=== PATIENT | male | born 1940 | race African-American/Black ===

== ENCOUNTER 2017-09-16 11:50 | Inpatient (IN) | payer OTHER, MEDICARE ==
[~2017-09-16] VITALS: Ht 172.7 cm; Wt 68.0 kg
[2017-09-16] MEDS: SODIUM CHLORIDE 0.9% 1000ML 1,000 ML IV SCH ×2 (12:00→14:43)
[2017-09-16] MEDS ORDERED: SODIUM CHLORIDE 0.9% 1000ML 2,000 ML ONE (12:04)
[2017-09-16] MEDS ORDERED: CEFTRIAXONE SOD 1 GM VIAL ONE (12:04)
[2017-09-16] MEDS ORDERED: ACETAMINOPHEN 1000 MG/100 ML 100 ML IV ONE (12:04)
[2017-09-16] MEDS ORDERED: ACETAMINOPHEN 1000 MG/100 ML IV STA (12:07)
[2017-09-16] MEDS ORDERED: VANCOMYCIN 1GM/NS 250 ML 250 ML IV ONE (12:15)
[2017-09-16] MEDS ORDERED: PIPER-TAZ 3.375 GM 50 ML IV ONE (12:15)
[2017-09-16 12:23] LABS: BILIRUBIN,URINE NEGATIVE (NEGATIVE); CLARITY,URINE CLEAR (CLEAR); COLOR,URINE YELLOW (YELLOW); KETONES,URINE NEGATIVE (NEGATIVE); LEUKOCYTE ESTERASE ,URINE TRACE (NEGATIVE); NITRITE,URINE NEGATIVE (NEGATIVE); PROTEIN,URINE DIPSTICK 1+ (NEGATIVE); URINE UROBILINOGEN 0.2 mg/dL (0.2 - 1)
[2017-09-16 12:24] LABS: BASOPHILS # (AUTO) 0.1 (0.0-0.1); BASOPHILS % 0.4 % (0.0-1.0); HEMATOCRIT 32.2 % (38.2-49.6); HEMOGLOBIN 9.6 g/dL (14.0-18.0); LYMPHOCYTES # (AUTO) 3.7 (1.0-3.2); MEAN CORPUSCULAR HEMOGLOBIN 24.5 pg (28-32); MEAN CORPUSCULAR HGB CONC 29.8 g/dL (31-35); MEAN CORPUSCULAR VOLUME 82.1 fL (81-99); MONOCYTES # (AUTO) 1.6 (0.2-0.8); MONOCYTES % 8.2 % (4.4-11.3); NEUTROPHILS # (AUTO) 14.1 (2.1-6.9); PLATELET COUNT 221 x10e3/uL (140-360); RED BLOOD COUNT 3.92 x10e6/uL (4.3-5.7); RED CELL DISTRIBUTION WIDTH 17.2 % (11.7-14.4)
[2017-09-16 12:39] LABS: AMORPHOUS SEDIMENT,URINE MODERATE (FEW); BACTERIA,URINE MODERATE /HPF; EPITHELIAL CELLS,URINE FEW /LPF; MUCUS,URINE MODERATE (RARE); RBC,URINE 0-5 /HPF (0-5); WBC,URINE (MAN) 21-50 /HPF (0-5)
[2017-09-16 12:40] LABS: ABG HCO3 23 mmol/L (23-28); ABG PCO2 26 mmHg (41-51); ABG PH 7.56 (7.31-7.41); ABG PO2 116 mmHg (80-105)
[2017-09-16 12:45] LABS: ALANINE AMINOTRANSFERASE 20 IU/L (0-55); ALBUMIN 2.2 g/dL (3.5-5.0); ALBUMIN/GLOBULIN RATIO 0.3 (0.8-2.0); ALKALINE PHOSPHATASE 121 IU/L (40-150); ANION GAP 15.3 mmol/L (8-16); BLOOD UREA NITROGEN 44 mg/dL (7-26); BUN/CREATININE RATIO 35 (6-25); CALCIUM 10.4 mg/dL (8.4-10.2); CARBON DIOXIDE 23 mmol/L (22-29); CHLORIDE 117 mmol/L (98-107); CREATININE, SERUM 1.26 mg/dL (0.72-1.25); EST GLOMERULAR FILTRATION RATE > 60 ML/MIN (60-); GLUCOSE 172 mg/dL (74-118); POTASSIUM 4.3 mmol/L (3.5-5.1); SODIUM 151 mmol/L (136-145)
[2017-09-16 13:02] LABS: CREATINE KINASE MB 0.4 ng/mL (0.00-5.00)
--- NOTE | 2017-09-16 13:40 | Diagnostic Imaging Report ---
EXAMINATION: CHEST SINGLE (NOT PORTABLE) INDICATION: \S\SEPSIS \S\[id number] \S\1318 \S\Y COMPARISON: None FINDINGS: AP view TUBES and LINES: None. LUNGS: Lungs are well inflated. Bibasilar atelectasis. There is no evidence of pneumonia or pulmonary edema. PLEURA: Calcified pleural plaques in both lower hemithorax is. Ill-defined left peripheral opacities suggestive of diffuse pleural plaques. HEART AND MEDIASTINUM: The cardiomediastinal silhouette is unremarkable.. BONES AND SOFT TISSUES: No acute osseous lesion. Soft tissues are unremarkable. UPPER ABDOMEN: No free air under the diaphragm. IMPRESSION: Bibasilar atelectasis with diffuse bilateral pleural plaques, left greater than right. CT chest can be more helpful for further evaluation. Signed by: Dr. Nu Thornton M.D. on 09/16/2017 1:36 PM
--- NOTE | 2017-09-16 13:43 | Diagnostic Imaging Report ---
LEFT FOOT X-RAY - 2 VIEWS HISTORY: \S\infection \[id number] \S\1317 COMPARISON: None available. FINDINGS: Bones: No acute displaced fracture. Remote posttraumatic deformity of the left fifth metatarsal. Focal lucency within the distal aspect of the left fifth proximal phalanx and base of the left first proximal phalanx. Osseous alignment is within normal limits. Joints: Advanced degenerative changes throughout the foot. Soft tissues: The soft tissues appear unremarkable. IMPRESSION: Focal cortical lucency within the left fifth proximal phalanx and base of the left first proximal phalanx may represent osteomyelitis. Signed by: Dr. Nu Thornton M.D. on 09/16/2017 1:39 PM
--- NOTE | 2017-09-16 13:44 | Diagnostic Imaging Report ---
RIGHT FOOT X-RAY - 2 VIEWS HISTORY: \S\infection \[id number] \S\1317 COMPARISON: None available. FINDINGS: Bones: No acute displaced fracture. Diffuse bony mineralization. Focal cortical disruption and lucency of the distal aspect of the right fifth metatarsal with adjacent soft tissue swelling. Osseous alignment is within normal limits. Joints: Advanced degenerative changes throughout the foot. Soft tissues: Soft tissue swelling adjacent to the distal right first digit. IMPRESSION: Radiographic findings concerning for osteomyelitis of the distal right fifth metatarsal. Signed by: Dr. Nu Thornton M.D. on 09/16/2017 1:41 PM
[2017-09-16] MEDS ORDERED: LACTATED RINGER'S 1,000 ML IV ONE (13:45)
[2017-09-16] MEDS ORDERED: ACETAMINOPHEN 1000 MG/100 ML IV PRN (15:00)
[2017-09-16] MEDS: DEXTROSE 5% 1,000 ML IV SCH (17:34)
[2017-09-16] MEDS ORDERED: SODIUM CHLORIDE 0.9% 1000ML 1,000 ML IV SCH (19:15)
[2017-09-16] MEDS ORDERED: PIPER-TAZ 3.375 GM 50 ML IV SCH (20:00)
[2017-09-16 20:17] VITALS: BP 99/67
[2017-09-16] MEDS: PIPER-TAZ 3.375 GM 50 ML IV SCH (22:39)
[2017-09-17] MEDS ORDERED: VANCOMYCIN 1GM/NS 250 ML 250 ML IV SCH
[2017-09-17] MEDS: VANCOMYCIN 1GM/NS 250 ML 250 ML IV SCH ×2 (03:00→14:44)
[2017-09-17] MEDS: DEXTROSE 5% 1,000 ML IV SCH ×2 (03:00→16:41)
[2017-09-17] MEDS: PIPER-TAZ 3.375 GM 50 ML IV SCH ×3 (06:00→22:45)
[2017-09-17 06:28] LABS: BASOPHILS # (AUTO) 0.1 (0.0-0.1); BASOPHILS % 0.3 % (0.0-1.0); EOSINOPHILS # (AUTO) 0.1 (0.0-0.4); EOSINOPHILS % 0.5 % (0.0-6.0); HEMATOCRIT 22.8 % (38.2-49.6); LYMPHOCYTES # (AUTO) 2.4 (1.0-3.2); LYMPHOCYTES % 15.4 % (18.0-39.1); MEAN CORPUSCULAR HEMOGLOBIN 24.5 pg (28-32); MEAN CORPUSCULAR HGB CONC 29.4 g/dL (31-35); MEAN CORPUSCULAR VOLUME 83.2 fL (81-99); MONOCYTES # (AUTO) 1.2 (0.2-0.8); MONOCYTES % 7.4 % (4.4-11.3); NEUTROPHILS # (AUTO) 11.8 (2.1-6.9); NEUTROPHILS % 75.9 % (38.7-80.0); PLATELET COUNT 171 x10e3/uL (140-360); RED BLOOD COUNT 2.74 x10e6/uL (4.3-5.7)
[2017-09-17 06:31] LABS: HEMOGLOBIN 6.7 g/dL (14.0-18.0)
[2017-09-17] MEDS ORDERED: VENELEX OINTMEN60 GM TOP (06:37)
[2017-09-17] MEDS ORDERED: [UNRECOGNIZED DRUG - OTHER] TOP (06:37)
[2017-09-17] MEDS ORDERED: NYSTATIN-TRIAMC15 G1 TOP (06:37)
[2017-09-17] MEDS ORDERED: NYSTATIN1 EAC1 TOP (06:37)
[2017-09-17] MEDS ORDERED: ACETAMINOP325 MG/10 PEG (06:37)
[2017-09-17] MEDS ORDERED: VALPROIC A250 MG/5 M PEG (06:37)
[2017-09-17] MEDS ORDERED: ASPIRIN CHEW81 MG PEG (06:37)
[2017-09-17] MEDS ORDERED: PANTOPRAZOLE SO40 MG PEG (06:37)
[2017-09-17] MEDS ORDERED: MULTIVITAMINS1 EAC8 PEG (06:37)
[2017-09-17] MEDS ORDERED: CEFEPIME-D1 GM/50 ML IVP (06:37)
[2017-09-17] MEDS ORDERED: LEVAQUIN500 MG PEG (06:37)
[2017-09-17] MEDS ORDERED: POTASSIUM CHLO10 ME1 PEG (06:37)
[2017-09-17 06:41] LABS: ALANINE AMINOTRANSFERASE 14 IU/L (0-55); ALBUMIN 1.8 g/dL (3.5-5.0); ALBUMIN/GLOBULIN RATIO 0.3 (0.8-2.0); ALKALINE PHOSPHATASE 84 IU/L (40-150); ANION GAP 10.1 mmol/L (8-16); BLOOD UREA NITROGEN 36 mg/dL (7-26); BUN/CREATININE RATIO 46 (6-25); CARBON DIOXIDE 22 mmol/L (22-29); CHLORIDE 117 mmol/L (98-107); CREATININE, SERUM 0.78 mg/dL (0.72-1.25); EST GLOMERULAR FILTRATION RATE > 60 ML/MIN (60-); GLUCOSE 116 mg/dL (74-118); POTASSIUM 3.1 mmol/L (3.5-5.1); SODIUM 146 mmol/L (136-145)
[2017-09-17] MEDS ORDERED: SODIUM CHLORIDE 0.9% 250ML 250 ML IV ONE (07:00)
[2017-09-17 08:36] LABS: MAGNESIUM 1.6 MG/DL (1.3-2.1)
[2017-09-17 08:51] LABS: % IRON SATURATION 16 % (15-50); IRON 23 ug/dL (65-175); TOTAL IRON BINDING CAPACITY 146 ug/dL (261-478); TRANSFERRIN 104 mg/dL (174-364)
[2017-09-17] MEDS ORDERED: PANTOPRAZOLE INJ 40 MG in SODIUM CHLORIDE 0.9% 50ML 50 ML IV SCH (09:00)
[2017-09-17] MEDS: ASPIRIN 81 MG CHEW TAB PEG SCH (09:00)
[2017-09-17] MEDS ORDERED: PANTOPRAZOLE 40 MG 10ML VIAL IV ONE (09:00)
[2017-09-17 09:02] LABS: FREE T4 (FREE THYROXINE) 0.79 ng/dL (0.9-1.8)
[2017-09-17 09:58] LABS: FOLATE > 20.0 ng/mL (7.0-15.4)
[2017-09-17] MEDS: NYSTATIN 15 GM POWDER UD BTL TOP SCH ×2 (13:12→17:22)
[2017-09-17] MEDS: VALPROATE 250MG/5ML ORAL LIQ 5ml PEG SCH ×2 (13:12→22:45)
[2017-09-17] MEDS: MULTIVITAMINS 5 ML LIQUID PEG SCH (13:13)
[2017-09-17] MEDS: NYSTATIN/TRIAMCINOLONE 15 GM CR TOP SCH ×2 (13:13→17:22)
--- NOTE | 2017-09-17 14:54 | History and Physical ---
PRIMARY CARE PROVIDER: Dr. Will Gonzalez CHIEF COMPLAINT: Fever and altered mentation. HISTORY OF PRESENT ILLNESS: Mr. Meadows is a 77-year-old gentleman who is bedbound with contractures of all 4 extremities, pressure sores on his feet, chronic indwelling Rodriguez catheter, PEG tube for feeding, who was sent from [facility] with fever greater than 102 with some decreased responsiveness related to the fever. REVIEW OF SYSTEMS: Unobtainable as the patient answers only his name to any question. 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 He has a PEG tube in place for feeding. He has contractures of all 4 extremities. He also has an apparent history of coronary artery disease and congestive heart failure. MEDICATIONS 1. Protonix 40 mg daily. 2. He has been on levofloxacin and cefepime at the longterm. 3. Potassium 10 mEq daily. 4. Bumex1 mg daily. 5. Tylenol as needed. 6. Aspirin 81 mg daily. 7. Multivitamin daily. 8. Nystatin powder to the groin. 9. Valproic acid 250 mg q.12 h. ALLERGIES: HE HAS NO KNOWN DRUG ALLERGIES. FAMILY HISTORY: Unknown. SOCIAL HISTORY: The patient is a resident of [facility]. He does not smoke, drink or use illegal drugs. He is bedridden and requires total assistance for all activities of daily living. He is and [place] is his primary language. PHYSICAL EXAMINATION PSYCHIATRIC: He is awake, alert and oriented to himself only. Otherwise, confused and disoriented, but awake. He is cachectic in appearance and chronically ill-appearing. He is in no acute distress. VITAL SIGNS: Temperature 99.4, temperature on admission 105.7, pulse rate currently 96 and was 148 on admission, blood pressure currently 110/85 and was 113/68 on admission. The lowest it got was 99/67, respiratory rate 16, O2 sat 100%. BMI is 19. HEENT: His head is atraumatic. His eyes are anicteric with clear conjunctivae. Ears and nares are without erythema or discharge. Oropharynx is clear. NECK: Supple. No mass or thyromegaly. LYMPHATIC SYSTEM: He has no palpable cervical, axillary or inguinal adenopathy. CARDIOVASCULAR: His heart has a regular rate and rhythm without murmur or extra heart sound. He has no carotid bruit. He has no peripheral edema. His dorsal pedal pulses are not palpable. RESPIRATORY: Clear to auscultation and percussion with normal respiratory effort. GASTROINTESTINAL: His abdomen is soft without organomegaly, masses or tenderness. He has a PEG tube in place that is functional. CUTANEOUS: His skin is warm and dry to touch. Quite dry in fact. He has numerous pressure sores on both feet, both medial and lateral ankles on both feet, both heels. On the left foot, medial forefoot. On the right foot, lateral forefoot. Some of which are open and draining. MUSCULOSKELETAL: His joints are in normal alignment. He is contractures in all 4 extremities. He has no calf tenderness. NEUROLOGIC: The patient is awake. He basically cannot move anything. He can kind of wiggle his fingers on his left hand and that is about it. Cannot move any of his other extremities. DIAGNOSTIC STUDIES: Chest x-ray shows bibasilar atelectasis and diffuse pleural plaques bilaterally. His right foot shows questionable osteo in the distal 5th metatarsal and soft tissue swelling adjacent to the 1st toe. The left foot shows question osteo on the left proximal 5th phalange. His flu screen is negative. His UA has 20-50 white cells. ABGs has a pH of 7.56, pCO2 of 26, pO2 of 116. Free T4 is 0.79. Troponin 0.038. Folic acid greater than 20. B12 477, both normal. Iron 23, percent saturation 16, and transferrin 104, all low. His chemistry initially sodium of 151, potassium 4.3, chloride 117, CO2 23, glucose 172, creatinine 1.26, BUN 44. GFR greater than 60. Calcium 10.4. After hydration overnight with D5, his sodium is 146, potassium is 3.1, CO2 22, chloride 117, BUN 36, creatinine 0.78, again for a GFR greater than 60. Calcium is 9. Magnesium 1.6. His CBC initially with white count of 19.58 with 72% neutrophils, 19% lymphocytes, hemoglobin 9.6, hematocrit 32.7, and platelet count 221,000. With hydration overnight, his white count is 15.5 with 76% neutrophils, hemoglobin 6.7, hematocrit 22.8, and platelet count of 171,000. His transaminases, bilirubin and alk phos are all normal. IMPRESSION AND PLAN 1. Urinary tract infection with sepsis: Will start the patient on intravenous Zosyn empirically pending urine culture results. 2. Infected pressure sores on both feet with evidence of osteomyelitis: Will obtain wound cultures. Will order wound care. Will start intravenous vancomycin and Zosyn empirically and consult podiatry for possible debridement. 3. Iron deficiency anemia: Possible gastrointestinal bleeding. Will start a Protonix drip. Check a fecal occult blood test and transfuse 2 units of packed cells today. 4. History of congestive heart failure of unknown type: Will order an echocardiogram to assess left ventricular function. 5. Old stroke with dementia, seizures and dysphagia: Will continue his Depakote. Will percutaneous endoscopic gastrostomy feeding. Will continue supportive care. 6. Related to the infected sores on his feet, will obtain bilateral arterial Dopplers of the lower extremity, and will supplement his tube feeding with vitamins and supplements for wound healing. 7. For prophylaxis, he will be on Lovenox for deep venous thrombosis prophylaxis and Protonix drip for gastrointestinal prophylaxis. Job#: [id number] [place]
[2017-09-17] MEDS: PANTOPRAZOL 40MG/SOD CHL 0.9% 50 ML IV SCH ×2 (16:50→22:44)
[2017-09-17 21:00] VITALS: BP 96/86
[2017-09-17] MEDS ORDERED: MORPHINE SULFATE 2 MG/ML SYR IV STA (21:10)
[2017-09-17] MEDS ORDERED: MORPHINE SULFATE 2 MG/ML SYR ONE (21:12)
[2017-09-17 22:00] VITALS: BP 121/73
[2017-09-17 22:12] VITALS: BP 96/66
[2017-09-17 22:21] VITALS: BP 102/62
[2017-09-17 22:25] VITALS: BP 99/62
[2017-09-17] MEDS: HYDROCODONE/APAP 5MG-325MG TAB PO PRN (22:46)
[2017-09-17 23:25] VITALS: BP 131/78
[2017-09-18] VITALS (16 sets, daily range): BP systolic 79–132; BP diastolic 47–92
[2017-09-18] MEDS: PANTOPRAZOL 40MG/SOD CHL 0.9% 50 ML IV SCH ×3 (01:41→09:42)
[2017-09-18] MEDS: HYDROCODONE/APAP 5MG-325MG TAB PO PRN ×3 (05:00→20:03)
[2017-09-18] MEDS: DEXTROSE 5% 1,000 ML IV SCH (05:01)
[2017-09-18] MEDS: PIPER-TAZ 3.375 GM 50 ML IV SCH ×3 (05:02→21:00)
[2017-09-18] MEDS: VANCOMYCIN 1GM/NS 250 ML 250 ML IV SCH ×2 (05:02→15:00)
[2017-09-18 06:11] LABS: BASOPHILS % 0.3 % (0.0-1.0); EOSINOPHILS # (AUTO) 0.2 (0.0-0.4); EOSINOPHILS % 1.2 % (0.0-6.0); HEMATOCRIT 27.6 % (38.2-49.6); HEMOGLOBIN 8.8 g/dL (14.0-18.0); LYMPHOCYTES % 14.7 % (18.0-39.1); MEAN CORPUSCULAR HEMOGLOBIN 26.4 pg (28-32); MEAN CORPUSCULAR HGB CONC 31.9 g/dL (31-35); MEAN CORPUSCULAR VOLUME 82.9 fL (81-99); MONOCYTES # (AUTO) 0.8 (0.2-0.8); MONOCYTES % 6.2 % (4.4-11.3); NEUTROPHILS # (AUTO) 10.3 (2.1-6.9); NEUTROPHILS % 77.3 % (38.7-80.0); PLATELET COUNT 129 x10e3/uL (140-360); RED BLOOD COUNT 3.33 x10e6/uL (4.3-5.7); RED CELL DISTRIBUTION WIDTH 15.9 % (11.7-14.4)
[2017-09-18 06:29] LABS: ALANINE AMINOTRANSFERASE 11 IU/L (0-55); ALBUMIN 1.8 g/dL (3.5-5.0); ALBUMIN/GLOBULIN RATIO 0.3 (0.8-2.0); ALKALINE PHOSPHATASE 81 IU/L (40-150); ANION GAP 12.2 mmol/L (8-16); BLOOD UREA NITROGEN 23 mg/dL (7-26); BUN/CREATININE RATIO 38 (6-25); CALCIUM 8.7 mg/dL (8.4-10.2); CARBON DIOXIDE 19 mmol/L (22-29); CHLORIDE 111 mmol/L (98-107); CREATININE, SERUM 0.61 mg/dL (0.72-1.25); EST GLOMERULAR FILTRATION RATE > 60 ML/MIN (60-); GLUCOSE 110 mg/dL (74-118); POTASSIUM 3.2 mmol/L (3.5-5.1); SODIUM 139 mmol/L (136-145)
[2017-09-18] MEDS: NYSTATIN/TRIAMCINOLONE 15 GM CR TOP SCH ×2 (09:00→18:27)
[2017-09-18] MEDS: NYSTATIN 15 GM POWDER UD BTL TOP SCH ×2 (09:42→18:27)
[2017-09-18] MEDS: ASPIRIN 81 MG CHEW TAB PEG SCH (09:53)
[2017-09-18] MEDS: VALPROATE 250MG/5ML ORAL LIQ 5ml PEG SCH ×2 (09:53→20:03)
[2017-09-18] MEDS: MULTIVITAMINS 5 ML LIQUID PEG SCH (09:53)
--- NOTE | 2017-09-18 10:22 | Consultation ---
DATE OF CONSULTATION: September 18, 2017 REASON FOR CONSULTATION: Bilateral foot wounds. HISTORY OF PRESENT ILLNESS: This is a 77-year-old male who was admitted through the emergency room for increasing fever and altered mental status. He has a past medical history for major stroke that left him as a functional quadriplegic with dysphagia and dementia. Coronary artery disease, congestive heart failure. The patient is unable to answer questions appropriately when asked questions. He only responds to saying, "my legs". The patient is currently residing at [facility]. PAST MEDICAL HISTORY: Stroke, functional quadriplegia, coronary artery disease, congestive heart failure. MEDICATIONS: Per the chart. ALLERGIES: NO KNOWN DRUG ALLERGIES. FAMILY HISTORY: Unknown. SOCIAL HISTORY: Lives at [facility]. PHYSICAL EXAMINATION GENERAL: The patient is not alert and oriented. VITAL SIGNS: Today, temperature is 97.5, heart rate 100, blood pressure 132/85, pulse ox 100% on room air. PROBLEM FOCUSED TO LOWER EXTREMITY PHYSICAL EXAMINATION VASCULAR: Dorsalis pedis and posterior tibial pulses are nonpalpable. Capillary refill time is delayed to the digits, especially the right 5th digit. Moderate 1+ pitting edema noted to bilateral lower extremities. There is erythema as noted to the periwound of multiple lower extremity foot ulcers. The foot is in general cold to the touch. NEUROLOGICAL: Sensation is difficult to be determined. The patient exclaims in pain when the lower extremities are moved. MUSCULOSKELETAL: Severe contractures at the hip and at the knee joint, as well as the upper extremities. The patient has no muscle strength to bilateral lower extremity muscle groups. However, pain is elicited when trying to position the patient and move to evaluate the wounds. Pain on palpation to all lower extremity ulcerations. DERMATOLOGICAL: Multiple ulcerations are noted to bilateral lower extremities to the right 5th digit, and stage 3 ulceration with mild drainage with a fibro-granular base. A deep stage 3 ulceration to the patient's right heel, which does probe down to the level of deep capsule. The wound is 100% fibrotic with mild drainage. A pre-ulcerative lesion around the left 1st metatarsophalangeal joint. Ulceration along the left heel, as well as the left lateral malleolus. Multiple ulcerations are noted to the patient's medial leg lower extremities. LABS: White blood cell count is 13.3 down from 19.5, hemoglobin 8.8, hematocrit 27.6, and platelet count is 129,000. Sodium 139, potassium 3.2, chloride 111, CO2 19, BUN 23, creatinine 0.6, glucose 124. Blood cultures positive with gram-positive cocci in pairs and clusters. Right and left foot culture, urine culture and sacral ulcer cultures are pending. IMAGING: Right foot x-ray reveals osteolytic destruction of the right 5th proximal phalanx consistent with osteomyelitis. The left foot reveals possible cortical lucency in the left 1st proximal phalanx. The left 5th proximal phalanx with deformity to the left 5th metatarsal, which may include chronic osteo versus previous trauma. ASSESSMENT 1. Bilateral lower extremity multiple ulcerations with osteomyelitis. 2. Peripheral vascular disease. 3. Sepsis. 4. Status post stroke with quadriplegia. PLAN: Patient was seen evaluated. Discussed condition and treatment options with the patient in detail. At this time, would recommend continuing IV antibiotics with vancomycin and Zosyn until wound cultures are received. Will continue local wound care with Aquacel for drainage, 4 x 4's, and Kerlix. The wound dressing was changed today, and all wounds were cleansed with normal saline. The patient was screaming in pain during dressing changes, and wounds were difficult to be evaluated due to severe contractures to bilateral lower extremities. Will continue to monitor wounds with IV antibiotics and local wound care. Will also await results of arterial Dopplers to determine the patient's vascularity. At this point, amputation of osteomyelitic digit would be of little value due to severe nonhealing ulcerations to multiple locations on bilateral lower extremities. Will continue to monitor. If amputation is necessary when the patient is stable, will recommend palliative care with wound care and IV antibiotics. The podiatry service will continue to monitor as an inpatient. Job#: [id number] [place]
[2017-09-18] MEDS ORDERED: POTASSIUM CHLORIDE 20MEQ/15ML UDC NG STA (11:35)
[2017-09-18] MEDS: FAMOTIDINE 20 MG TAB PO SCH (20:03)
[2017-09-18] MEDS: METOCLOPRAMIDE HCL 10 MG TAB PO SCH (20:03)
[2017-09-18] MEDS: BALSAM PERU/CASTOR OIL 60 GM OINT...G. TP SCH (20:03)
[2017-09-18] MEDS ORDERED: TRAMADOL HCL 50 MG TAB GT PRN (23:15)
[2017-09-18] MEDS: HYDROCODONE/APAP 10MG-325MG TAB GT PRN (23:53)
[2017-09-19] VITALS (26 sets, daily range): BP systolic 84–130; BP diastolic 48–86
[2017-09-19] MEDS: HYDROCODONE/APAP 10MG-325MG TAB GT PRN ×2 (03:50→21:11)
[2017-09-19 05:59] LABS: BASOPHILS % 0.2 % (0.0-1.0); EOSINOPHILS # (AUTO) 0.2 (0.0-0.4); EOSINOPHILS % 1.9 % (0.0-6.0); HEMATOCRIT 27.2 % (38.2-49.6); HEMOGLOBIN 8.7 g/dL (14.0-18.0); LYMPHOCYTES # (AUTO) 1.9 (1.0-3.2); LYMPHOCYTES % 17.5 % (18.0-39.1); MEAN CORPUSCULAR VOLUME 81.2 fL (81-99); MONOCYTES # (AUTO) 0.8 (0.2-0.8); MONOCYTES % 7.2 % (4.4-11.3); NEUTROPHILS # (AUTO) 7.9 (2.1-6.9); NEUTROPHILS % 72.7 % (38.7-80.0); PLATELET COUNT 172 x10e3/uL (140-360); RED BLOOD COUNT 3.35 x10e6/uL (4.3-5.7); RED CELL DISTRIBUTION WIDTH 16.2 % (11.7-14.4)
[2017-09-19] MEDS: PIPER-TAZ 3.375 GM 50 ML IV SCH ×3 (06:19→21:10)
[2017-09-19 06:30] LABS: ANION GAP 10.8 mmol/L (8-16); BLOOD UREA NITROGEN 13 mg/dL (7-26); BUN/CREATININE RATIO 25 (6-25); CALCIUM 8.4 mg/dL (8.4-10.2); CARBON DIOXIDE 22 mmol/L (22-29); CHLORIDE 110 mmol/L (98-107); CREATININE, SERUM 0.51 mg/dL (0.72-1.25); EST GLOMERULAR FILTRATION RATE > 60 ML/MIN (60-); GLUCOSE 107 mg/dL (74-118); MAGNESIUM 1.4 MG/DL (1.3-2.1); POTASSIUM 3.8 mmol/L (3.5-5.1); SODIUM 139 mmol/L (136-145)
[2017-09-19] MEDS ORDERED: SODIUM CHLORIDE 0.9% 50ML 50 ML ONE (09:01)
[2017-09-19] MEDS: METOCLOPRAMIDE HCL 10 MG TAB PO SCH ×2 (09:14→20:14)
[2017-09-19] MEDS: FAMOTIDINE 20 MG TAB PO SCH ×2 (09:14→20:14)
[2017-09-19] MEDS: NYSTATIN 15 GM POWDER UD BTL TOP SCH ×2 (09:14→17:41)
[2017-09-19] MEDS: VANCOMYCIN 1GM/NS 250 ML 250 ML IV SCH (09:14)
[2017-09-19] MEDS: MULTIVITAMINS 5 ML LIQUID PEG SCH (09:14)
[2017-09-19] MEDS: BALSAM PERU/CASTOR OIL 60 GM OINT...G. TP SCH ×2 (09:14→17:41)
[2017-09-19] MEDS: VALPROATE 250MG/5ML ORAL LIQ 5ml PEG SCH ×2 (09:14→20:14)
[2017-09-19] MEDS: ASPIRIN 81 MG CHEW TAB PEG SCH (09:14)
[2017-09-19] MEDS: NYSTATIN/TRIAMCINOLONE 15 GM CR TOP SCH ×2 (09:14→17:41)
--- NOTE | 2017-09-19 11:49 | Progress Note ---
DATE: September 19, 2017 SUBJECTIVE: This 77-year-old male with a history of stroke, severe bilateral upper and lower extremity contractures, coronary artery disease, and congestive heart failure was seen at bedside today. The patient is nonverbal today. Does not appear in any acute distress. OBJECTIVE: Vital signs: Today, temperature is 97.8, heart rate 95, blood pressure 130/86, pulse ox 98% on 2 L nasal cannula. PROBLEM FOCUSED LOWER EXTREMITY PHYSICAL EXAMINATION VASCULAR: Dorsalis pedis and posterior tibial pulses are nonpalpable. Capillary refill time is delayed to the digits. NEUROLOGIC: Sensation is difficult to be determined; however, the patient does scream with pain. MUSCULOSKELETAL: Severe contractures at the hip and knee joint, as well as the upper extremities. No muscle strength to bilateral lower extremity muscle groups. Pain on palpation when trying to position the patient. DERMATOLOGICAL: Dressing change was not performed today. Did not appear to be any strikethrough to the current dressing. LABS: White blood cell count 10.9, hemoglobin 8.7, hematocrit 27.2, platelet count 172. Glucose 108. ASSESSMENT 1. Bilateral lower extremities with multiple ulcerations and osteomyelitis. 2. Peripheral vascular disease. 3. Sepsis. 4. Status post stroke with severe contractures and functional quadriplegia. PLAN: Patient was seen and evaluated. Discussed condition and treatment options with the patient in detail. The patient's leukocytosis is resolving. Vital signs are stabilizing. Will continue local wound care with protocol for drainage, 4 x 4's and Kerlix to be changed every other day. Will continue to monitor wounds with IV antibiotics and local wound care. No family was at bedside today. Also, there is no report for vascularity of bilateral lower extremities. At this point, amputation of the osteomyelitis of the right foot wound be of little value due to poor circulation and the patient's positioning in light of multiple nonhealing ulcerations to bilateral lower extremities. At this point, will continue to recommended palliative care with IV antibiotics and local wound care. The podiatry service will continue to monitor as an inpatient. Job#: [id number]
[2017-09-19] MEDS: ACETAMINOPHEN 325 MG/10 ML UDC PEG PRN (12:17)
[2017-09-19] MEDS ORDERED: SODIUM CHLORIDE 0.9% 1000ML 1,000 ML IV ONE (18:30)
[2017-09-20] VITALS (30 sets, daily range): BP systolic 77–119; BP diastolic 48–97
[2017-09-20] MEDS: ACETAMINOPHEN 325 MG/10 ML UDC PEG PRN ×2 (00:38→21:00)
[2017-09-20] MEDS: PIPER-TAZ 3.375 GM 50 ML IV SCH ×2 (05:40→14:06)
[2017-09-20 06:11] LABS: BASOPHILS % 0.3 % (0.0-1.0); EOSINOPHILS # (AUTO) 0.3 (0.0-0.4); EOSINOPHILS % 2.5 % (0.0-6.0); HEMATOCRIT 24.3 % (38.2-49.6); LYMPHOCYTES # (AUTO) 2.6 (1.0-3.2); LYMPHOCYTES % 20.9 % (18.0-39.1); MEAN CORPUSCULAR HEMOGLOBIN 26.5 pg (28-32); MEAN CORPUSCULAR HGB CONC 32.5 g/dL (31-35); MEAN CORPUSCULAR VOLUME 81.5 fL (81-99); MONOCYTES % 7.8 % (4.4-11.3); NEUTROPHILS # (AUTO) 8.3 (2.1-6.9); NEUTROPHILS % 67.9 % (38.7-80.0); PLATELET COUNT 201 x10e3/uL (140-360); RED BLOOD COUNT 2.98 x10e6/uL (4.3-5.7); RED CELL DISTRIBUTION WIDTH 16.7 % (11.7-14.4)
[2017-09-20 06:22] LABS: HEMOGLOBIN 7.9 g/dL (14.0-18.0)
[2017-09-20 06:38] LABS: ANION GAP 10.6 mmol/L (8-16); BLOOD UREA NITROGEN 10 mg/dL (7-26); BUN/CREATININE RATIO 20 (6-25); CALCIUM 8.1 mg/dL (8.4-10.2); CARBON DIOXIDE 23 mmol/L (22-29); CHLORIDE 108 mmol/L (98-107); EST GLOMERULAR FILTRATION RATE > 60 ML/MIN (60-); GLUCOSE 102 mg/dL (74-118); MAGNESIUM 1.3 MG/DL (1.3-2.1); POTASSIUM 3.6 mmol/L (3.5-5.1); SODIUM 138 mmol/L (136-145)
[2017-09-20] MEDS: NYSTATIN/TRIAMCINOLONE 15 GM CR TOP SCH ×2 (09:00→17:00)
[2017-09-20] MEDS: METOCLOPRAMIDE HCL 10 MG TAB PO SCH ×2 (09:00→21:00)
[2017-09-20] MEDS: VALPROATE 250MG/5ML ORAL LIQ 5ml PEG SCH ×2 (09:00→21:00)
[2017-09-20] MEDS: FAMOTIDINE 20 MG TAB PO SCH ×2 (09:00→21:00)
[2017-09-20] MEDS: ASPIRIN 81 MG CHEW TAB PEG SCH (09:00)
[2017-09-20] MEDS: VANCOMYCIN 1GM/NS 250 ML 250 ML IV SCH (09:00)
[2017-09-20] MEDS: MULTIVITAMINS 5 ML LIQUID PEG SCH (09:00)
[2017-09-20] MEDS: BALSAM PERU/CASTOR OIL 60 GM OINT...G. TP SCH ×2 (09:00→17:00)
[2017-09-20] MEDS: NYSTATIN 15 GM POWDER UD BTL TOP SCH ×2 (09:00→17:00)
[2017-09-20] MEDS ORDERED: SODIUM CHLORIDE 0.9% 250ML 250 ML IV ONE (09:45)
[2017-09-20] MEDS: HYDROCODONE/APAP 5MG-325MG TAB GT PRN ×2 (11:17→18:44)
--- NOTE | 2017-09-20 13:56 | Progress Note ---
DATE: September 20, 2017 SUBJECTIVE: This is a 77-year-old male with a history of stroke, severe upper and lower extremity contractures, coronary artery disease, and congestive heart failure, who was seen at bedside today. He was admitted for sepsis. The patient is much more alert and oriented today than he has been over the past 2 days. He is able to speak clearer. The patient relates that he is feeling much better, and he was not himself for the past 2 days. He does not appear in any acute distress. OBJECTIVE: Vital signs today: Temperature is 99.1, heart rate 86, respiratory rate 18, blood pressure 110/51. Pulse ox is 98% on 2 L nasal cannula. PROBLEM FOCUSED LOWER EXTREMITY PHYSICAL EXAMINATION VASCULAR: Dorsalis pedis and posterior tibial pulses are nonpalpable. Capillary refill time is delayed to the digits. The foot is warm to the touch. NEUROLOGIC: Sensation is difficult to be determined. The patient does scream in pain when moving the lower extremities. MUSCULOSKELETAL: Severe contractures at the hip and knee joint, as well as the upper and lower extremities. Has 0/5 muscle strength to bilateral lower extremity muscle groups. Pain on palpation and pain when positioning the patient. DERMATOLOGICAL: Several ulcerations are noted to bilateral lower extremities. Right 5th metatarsal head and digit large deep open ulceration. Drainage has improved from previous visit. Local acute signs of infection have improved as well. Right lateral malleolar wound is 100% fibrotic with no periwound erythema, edema, or drainage. Proximal leg ulcerations are significantly improved on the right lower extremity. Deep ulceration with drainage is noted to the patient's right heel. Left heel ulceration is small with hyperkeratotic tissue. Again, no drainage and no local acute signs of infection. Lateral malleolar wound is fibrotic with mild drainage. Periwound erythema is present. Medial aspect of the left lower leg has a superficial ulceration which is granular with no signs of infection. All wounds have improved since previous dressing change. LABS: White blood cell count 12.19, hemoglobin 7.9, hematocrit 24.3, platelet count 201. IMAGING: Arterial Dopplers of lower extremities reveal no significant atherosclerotic plaque noted in bilateral vessels. The mid segment of the right posterior tibial artery was not visualized. ASSESSMENT 1. Bilateral lower extremity ulcerations with osteomyelitis. 2. Sepsis, improving. 3. Status post stroke with severe contractures and functional quadriplegia. PLAN: Patient was seen and evaluated. Discussed condition and treatment options with the patient in detail. The patient's leukocytosis is improved since admission; however, a slight increase was noted today compared to yesterday. The patient was running a temperature of 99 at the time of visit today. Will continue local wound care to bilateral lower extremities. The draining ulcers were dressed with absorbent alginate. The dry eschars were dressed with Xeroform, saline wet-to-dry, 4 x 4's, Kerlix and Prevalon boots. Continue IV antibiotics. Again, no family was at bedside today. The patient is currently being attempted to transfer to [facility] for IV antibiotics and local wound care. My recommendation continues to be palliative care, as amputation would not benefit the patient at this time as he has a history of several nonhealing ulcerations to bilateral lower extremities and, due to lower extremity contractures, it would be difficult to perform. Would continue to recommend palliative care. Job#: [id number]
[2017-09-20] MEDS: ZINC SULFATE 220 MG CAP PO SCH (17:00)
[2017-09-20] MEDS: ASCORBIC ACID 500 MG TAB PO SCH (17:00)
[2017-09-20] MEDS: MAGNESIUM OXIDE 400 MG TAB PO SCH (17:00)
[2017-09-20] MEDS: FERROUS SULFATE 325 MG TAB PO SCH (17:00)
[2017-09-20] MEDS: OYST-CAL-D 500MG TABLET PO SCH (17:00)
[2017-09-20] MEDS ORDERED: SODIUM CHLORIDE 0.9% 250ML 250 ML ONE (20:55)
[2017-09-21] VITALS (8 sets, daily range): BP systolic 102–146; BP diastolic 55–91
[2017-09-21] MEDS: PIPER-TAZ 3.375 GM 50 ML IV SCH ×4 (00:23→21:00)
--- NOTE | 2017-09-21 05:35 | Diagnostic Imaging Report ---
EXAM: CHEST SINGLE (PORTABLE), AP 1 view ORDER DATE: 09/21/2017 5:00 AM Time stamp on exam: 0516 hours INDICATION: Congestive heart failure COMPARISON: AP view of the chest September 16, 2017 FINDINGS: LINES/TUBES: None LUNGS: No consolidations or edema. PLEURA: Probable calcified pleural plaques. HEART AND MEDIASTINUM: Normal size and contour. BONES AND SOFT TISSUES: No acute findings. IMPRESSION: No interval change Signed by: Dr. Luna Major M.D. on 09/21/2017 5:32 AM
[2017-09-21] MEDS: ACETAMINOPHEN 325 MG/10 ML UDC PEG PRN (05:51)
[2017-09-21 06:00] LABS: BASOPHILS # (AUTO) 0.1 (0.0-0.1); BASOPHILS % 0.5 % (0.0-1.0); EOSINOPHILS # (AUTO) 0.3 (0.0-0.4); EOSINOPHILS % 2.6 % (0.0-6.0); HEMATOCRIT 28.9 % (38.2-49.6); HEMOGLOBIN 9.7 g/dL (14.0-18.0); LYMPHOCYTES % 18.4 % (18.0-39.1); MEAN CORPUSCULAR HEMOGLOBIN 27.4 pg (28-32); MEAN CORPUSCULAR HGB CONC 33.6 g/dL (31-35); MEAN CORPUSCULAR VOLUME 81.6 fL (81-99); MONOCYTES # (AUTO) 0.9 (0.2-0.8); MONOCYTES % 8.2 % (4.4-11.3); NEUTROPHILS # (AUTO) 7.4 (2.1-6.9); NEUTROPHILS % 69.7 % (38.7-80.0); PLATELET COUNT 255 x10e3/uL (140-360); RED BLOOD COUNT 3.54 x10e6/uL (4.3-5.7); RED CELL DISTRIBUTION WIDTH 16.5 % (11.7-14.4)
[2017-09-21 06:29] LABS: ANION GAP 9.7 mmol/L (8-16); BLOOD UREA NITROGEN 8 mg/dL (7-26); BUN/CREATININE RATIO 17 (6-25); CALCIUM 8.3 mg/dL (8.4-10.2); CARBON DIOXIDE 24 mmol/L (22-29); CHLORIDE 109 mmol/L (98-107); CREATININE, SERUM 0.48 mg/dL (0.72-1.25); EST GLOMERULAR FILTRATION RATE > 60 ML/MIN (60-); GLUCOSE 88 mg/dL (74-118); MAGNESIUM 1.5 MG/DL (1.3-2.1); POTASSIUM 3.7 mmol/L (3.5-5.1); SODIUM 139 mmol/L (136-145)
[2017-09-21 06:41] LABS: ANISOCYTOSIS SLIGHT; EOSINOPHILS % (MANUAL) 1 % (0-7); HYPOCHROMASIA SLIGHT; LYMPHOCYTES % (MANUAL) 15 % (19-48); MONOCYTES % (MANUAL) 4 % (3.4-9.0); NEUTROPHILS % (MANUAL) 79 % (40-74); PLATELET ESTIMATE ADEQUATE; PLATELET MORPHOLOGY COMMENT FEW LARGE; RBC MORPHOLOGY COMMENT NORMAL
[2017-09-21] MEDS: VANCOMYCIN 1GM/NS 250 ML 250 ML IV SCH (09:54)
[2017-09-21] MEDS: ASPIRIN 81 MG CHEW TAB PEG SCH (09:54)
[2017-09-21] MEDS: METOCLOPRAMIDE HCL 10 MG TAB PO SCH ×2 (09:55→21:00)
[2017-09-21] MEDS: VALPROATE 250MG/5ML ORAL LIQ 5ml PEG SCH ×2 (09:55→21:00)
[2017-09-21] MEDS: FAMOTIDINE 20 MG TAB PO SCH ×2 (09:55→21:00)
[2017-09-21] MEDS: OYST-CAL-D 500MG TABLET PO SCH ×2 (09:55→16:55)
[2017-09-21] MEDS: MULTIVITAMINS 5 ML LIQUID PEG SCH (09:55)
[2017-09-21] MEDS: ZINC SULFATE 220 MG CAP PO SCH ×2 (09:55→16:55)
[2017-09-21] MEDS: FERROUS SULFATE 325 MG TAB PO SCH (09:55)
[2017-09-21] MEDS: MAGNESIUM OXIDE 400 MG TAB PO SCH ×2 (09:55→16:55)
[2017-09-21] MEDS: ASCORBIC ACID 500 MG TAB PO SCH ×2 (09:55→16:55)
[2017-09-21] MEDS: NYSTATIN 15 GM POWDER UD BTL TOP SCH ×2 (11:25→17:46)
[2017-09-21] MEDS: NYSTATIN/TRIAMCINOLONE 15 GM CR TOP SCH ×2 (11:25→17:00)
[2017-09-21] MEDS: BALSAM PERU/CASTOR OIL 60 GM OINT...G. TP SCH ×2 (11:25→16:15)
--- NOTE | 2017-09-21 12:49 | Progress Note ---
DATE: September 21, 2017 SUBJECTIVE: This is a 77-year-old male with a history of stroke, severe upper and lower extremity contractures, coronary artery disease, and congestive heart failure, who was seen at bedside today. He was admitted 4 days ago for sepsis. The patient continues to be more alert and oriented than he was on admission. He is able to speak clearer. He relates that he is feeling better. Does not appear to be in any acute distress. OBJECTIVE: Vital signs today: Temperature is 97.6, heart rate 88, respiratory rate 24, blood pressure 108/58. Pulse ox is 100% on nasal cannula. Temperature max overnight was 99.8. PROBLEM FOCUSED LOWER EXTREMITY PHYSICAL EXAMINATION VASCULAR: Dorsalis pedis and posterior tibials are nonpalpable. Capillary refill time is delayed to the digits. The foot, however, is warm to the touch. NEUROLOGIC: Sensation is difficult to be determined. However, the patient does scream in pain when moving the lower extremities. MUSCULOSKELETAL: Severe contractures at the hip and knee joint, as well as the upper extremities. Has 0/5 muscle strength to bilateral lower extremity muscle groups. Pain on palpation when moving and positioning the patient. DERMATOLOGICAL: Multiple ulcerations are noted to bilateral lower extremities. Dressing was not changed on today's visit, as it was changed yesterday. LABS: White blood cell count today 10.5, down from 19 upon admission. Hemoglobin 9.7, hematocrit 28.9, platelet count 255. Blood glucose this morning was 99. Microbiology: Right foot wound Proteus mirabilis, 2 gram-negative rods and MRSA. The left foot is MRSA. Blood culture is coag-negative staph. The sacral ulcer is Staph aureus, gram-positive joleen, gram-negative joleen. ASSESSMENT 1. Bilateral lower extremity ulcerations with osteomyelitis. 2. Sepsis. 3. Status post stroke with severe upper and lower extremity contractures. PLAN: Patient was seen and evaluated. Discussed condition and treatment options with the patient in detail. The patient's leukocytosis has resolved. The patient had a T-max of 99.8 overnight. Continue local wound care to bilateral lower extremities. Dressing was not changed today as it was changed yesterday. Will continue antibiotics and local wound care at this time. My recommendation continues to be palliative care at this point. The patient is currently worked on to be transferred to [facility] for continued care. The podiatry service will continue to monitor as an inpatient. Job#: [id number]
[2017-09-22] VITALS (8 sets, daily range): BP systolic 112–151; BP diastolic 64–86
[2017-09-22] MEDS: PIPER-TAZ 3.375 GM 50 ML IV SCH ×3 (05:22→22:59)
[2017-09-22 06:07] LABS: BASOPHILS % 0.4 % (0.0-1.0); EOSINOPHILS # (AUTO) 0.3 (0.0-0.4); EOSINOPHILS % 3.1 % (0.0-6.0); HEMATOCRIT 29.4 % (38.2-49.6); HEMOGLOBIN 9.5 g/dL (14.0-18.0); LYMPHOCYTES # (AUTO) 2.3 (1.0-3.2); LYMPHOCYTES % 22.8 % (18.0-39.1); MEAN CORPUSCULAR HEMOGLOBIN 26.9 pg (28-32); MEAN CORPUSCULAR HGB CONC 32.3 g/dL (31-35); MEAN CORPUSCULAR VOLUME 83.3 fL (81-99); MONOCYTES # (AUTO) 0.8 (0.2-0.8); MONOCYTES % 8.1 % (4.4-11.3); NEUTROPHILS # (AUTO) 6.5 (2.1-6.9); NEUTROPHILS % 64.9 % (38.7-80.0); PLATELET COUNT 304 x10e3/uL (140-360); RED BLOOD COUNT 3.53 x10e6/uL (4.3-5.7); RED CELL DISTRIBUTION WIDTH 17.2 % (11.7-14.4)
[2017-09-22 06:44] LABS: ANION GAP 10.7 mmol/L (8-16); BLOOD UREA NITROGEN 7 mg/dL (7-26); BUN/CREATININE RATIO 14 (6-25); CALCIUM 8.4 mg/dL (8.4-10.2); CARBON DIOXIDE 24 mmol/L (22-29); CHLORIDE 105 mmol/L (98-107); EST GLOMERULAR FILTRATION RATE > 60 ML/MIN (60-); GLUCOSE 95 mg/dL (74-118); POTASSIUM 3.7 mmol/L (3.5-5.1); SODIUM 136 mmol/L (136-145)
[2017-09-22 07:53] LABS: EOSINOPHILS % (MANUAL) 3 % (0-7); LYMPHOCYTES % (MANUAL) 21 % (19-48); MONOCYTES % (MANUAL) 5 % (3.4-9.0); NEUTROPHILS % (MANUAL) 68 % (40-74)
[2017-09-22 07:54] LABS: ANISOCYTOSIS SLIGHT; HYPOCHROMASIA SLIGHT; PLATELET ESTIMATE ADEQUATE; PLATELET MORPHOLOGY COMMENT NORMAL; RBC MORPHOLOGY COMMENT NORMAL
[2017-09-22] MEDS: ASCORBIC ACID 500 MG TAB PO SCH ×2 (10:23→17:59)
[2017-09-22] MEDS: NYSTATIN/TRIAMCINOLONE 15 GM CR TOP SCH ×2 (10:23→17:59)
[2017-09-22] MEDS: VALPROATE 250MG/5ML ORAL LIQ 5ml PEG SCH ×2 (10:23→21:00)
[2017-09-22] MEDS: BALSAM PERU/CASTOR OIL 60 GM OINT...G. TP SCH ×2 (10:23→17:58)
[2017-09-22] MEDS: FAMOTIDINE 20 MG TAB PO SCH ×2 (10:23→21:00)
[2017-09-22] MEDS: NYSTATIN 15 GM POWDER UD BTL TOP SCH ×2 (10:23→17:59)
[2017-09-22] MEDS: METOCLOPRAMIDE HCL 10 MG TAB PO SCH ×2 (10:23→21:00)
[2017-09-22] MEDS: MAGNESIUM OXIDE 400 MG TAB PO SCH ×2 (10:23→17:59)
[2017-09-22] MEDS: ZINC SULFATE 220 MG CAP PO SCH ×2 (10:23→17:59)
[2017-09-22] MEDS: MULTIVITAMINS 5 ML LIQUID PEG SCH (10:23)
[2017-09-22] MEDS: ASPIRIN 81 MG CHEW TAB PEG SCH (10:23)
[2017-09-22] MEDS: OYST-CAL-D 500MG TABLET PO SCH ×2 (10:23→17:59)
[2017-09-22] MEDS: VANCOMYCIN 1GM/NS 250 ML 250 ML IV SCH (10:29)
--- NOTE | 2017-09-22 13:12 | Consultation ---
DATE OF CONSULTATION: INFECTIOUS DISEASE CONSULTATION HISTORY OF PRESENT ILLNESS: This is a patient of Dr. Sinclair. Infectious Disease was consulted for ESBL proteus/MRSA of the wounds. Patient is located at [facility] in [place], [place]. Mr. Meadows is a pleasant 77-year-old who seems to be alert and oriented. He is a half-way resident. He was running a temperature of 102 and seemed to be lethargic and not responding as much. He was transferred to [facility] for evaluation and treatment of his condition, diagnosed with the UTI. He was found to have multiple wounds. His UTI was treated with Zosyn. His radiology studies of the feet suggest an osteomyelitis of a distal right 5th metatarsal. Also, there is a full-cone cortical lucency within the left 5th mid proximal phalanx, and base of the left 1st proximal phalanx may represent osteomyelitis. Therefore, patient was diagnosed with osteomyelitis. Arterial Doppler did not show any significant obstruction or disease. Patient's wound culture came back with ESBL Proteus mirabilis and MRSA. Patient's antibiotics were adjusted to vancomycin and Zosyn, and Infectious Disease was consulted for the ESBL Proteus mirabilis and MRSA of the wound. 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 Dysphagia. He has a history of seizure disorder with dementia, status post PEG. Congestive heart failure. Coronary artery disease. Mostly bedbound. ALLERGIES: NO KNOWN DRUG ALLERGIES. MEDICATIONS: Medication list has been reviewed. As far as Infectious Disease point of view, patient is on vancomycin 1 g IV piggyback q.24 h., also on Zosyn q.8 h. at 3.375 g. LABORATORY STUDIES: White blood cell 9.99, hemoglobin 9.5, platelet 304. Creatinine 0.50, sodium 136, potassium 3.7. Vancomycin trough was 9.7 on September 19, 2017. Influenza came back negative for A and B. Fecal occult blood came back negative. Blood culture, one came back negative, one came back with coagulase-negative staph. Urine culture on September 16, 2017, was negative. Left foot wound culture came back with MRSA. Buttock came back with MRSA and gram-negative joleen. His right foot came back with ESBL Proteus mirabilis and MRSA. REVIEW OF SYSTEMS: No nausea, vomiting, fever, chills, chest pain, shortness of breath. Patient wants me just to be careful when I rotate the patient around for examining the wounds. Other than that, no complaints. PHYSICAL EXAMINATION VITAL SIGNS: Temperature 96.0, pulse 94, respiration 18, blood pressure 134/73. GENERAL: Alert, oriented x3, very pleasant. ABDOMEN: Soft, nontender. Bowel sounds positive 4 quadrants. CV: S1/S2. CHEST: Equal expansion. No acute distress. EXTREMITIES: Contracted extremities. Sacral wound seen. I do not feel any exposed bone. He has multiple wounds on the bilateral lower extremities, run mostly on the lateral sides of the tib-fib area and go down to the lateral sides of the feet. Multiple wounds. Right seems worse than left. No active pus noted. No significant erythema. There is 1+ at least edema of the lower extremities. Patient is in position and contracted extremity on his left side. ASSESSMENT AND PLAN: Osteomyelitis of bilateral feet with extended-spectrum beta-lactamase Proteus mirabilis and Methicillin-resistant Staph aureus on the culture. Currently on vancomycin and Zosyn. Agree with antibiotics. Patient is going to need a total of 6 weeks of vancomycin and Zosyn with a weekly ESR, CRP, CBC, BMP, and vancomycin trough. Kidney function needs to be monitored very closely. Finish 6 weeks of vancomycin and Zosyn. Other medical conditions will be deferred to other specialties and/or Internal Medicine. Thank you for this consult and allowing us to participate in medical needs of this pleasant gentleman. Dictated by: BRIAN Cardoso Job#: [id number] ALIDA
[2017-09-22] MEDS: FERROUS SULFATE 300 MG/5 ML LIQD GT SCH (17:59)
[2017-09-23] MEDS: ACETAMINOPHEN 325 MG/10 ML UDC PEG PRN ×2 (00:12→21:00)
[2017-09-23 00:48] VITALS: BP 106/62
[2017-09-23] MEDS: PIPER-TAZ 3.375 GM 50 ML IV SCH ×3 (05:21→22:40)
[2017-09-23 06:27] LABS: BASOPHILS # (AUTO) 0.1 (0.0-0.1); BASOPHILS % 0.4 % (0.0-1.0); EOSINOPHILS # (AUTO) 0.2 (0.0-0.4); EOSINOPHILS % 1.9 % (0.0-6.0); HEMATOCRIT 30.5 % (38.2-49.6); HEMOGLOBIN 9.9 g/dL (14.0-18.0); LYMPHOCYTES # (AUTO) 2.4 (1.0-3.2); LYMPHOCYTES % 20.9 % (18.0-39.1); MEAN CORPUSCULAR HGB CONC 32.5 g/dL (31-35); MEAN CORPUSCULAR VOLUME 83.3 fL (81-99); MONOCYTES # (AUTO) 1.3 (0.2-0.8); MONOCYTES % 11.8 % (4.4-11.3); NEUTROPHILS # (AUTO) 7.3 (2.1-6.9); NEUTROPHILS % 64.3 % (38.7-80.0); PLATELET COUNT 348 x10e3/uL (140-360); RED BLOOD COUNT 3.66 x10e6/uL (4.3-5.7); RED CELL DISTRIBUTION WIDTH 17.7 % (11.7-14.4)
[2017-09-23 06:45] VITALS: BP 122/71
[2017-09-23 06:52] LABS: BLOOD UREA NITROGEN 8 mg/dL (7-26); BUN/CREATININE RATIO 15 (6-25); CARBON DIOXIDE 25 mmol/L (22-29); CHLORIDE 105 mmol/L (98-107); CREATININE, SERUM 0.53 mg/dL (0.72-1.25); EST GLOMERULAR FILTRATION RATE > 60 ML/MIN (60-); GLUCOSE 101 mg/dL (74-118); SODIUM 136 mmol/L (136-145)
[2017-09-23] MEDS: FERROUS SULFATE 300 MG/5 ML LIQD GT SCH (09:00)
[2017-09-23 09:23] VITALS: BP 139/72
[2017-09-23] MEDS: MULTIVITAMINS 5 ML LIQUID PEG SCH (09:54)
[2017-09-23] MEDS: VALPROATE 250MG/5ML ORAL LIQ 5ml PEG SCH ×2 (09:55→21:00)
[2017-09-23] MEDS: ASCORBIC ACID 500 MG TAB PO SCH ×2 (09:55→18:47)
[2017-09-23] MEDS: MAGNESIUM OXIDE 400 MG TAB PO SCH ×2 (09:55→18:47)
[2017-09-23] MEDS: ASPIRIN 81 MG CHEW TAB PEG SCH (09:55)
[2017-09-23] MEDS: OYST-CAL-D 500MG TABLET PO SCH ×2 (09:55→18:47)
[2017-09-23] MEDS: BALSAM PERU/CASTOR OIL 60 GM OINT...G. TP SCH ×2 (09:55→18:47)
[2017-09-23] MEDS: NYSTATIN/TRIAMCINOLONE 15 GM CR TOP SCH ×2 (09:55→18:47)
[2017-09-23] MEDS: NYSTATIN 15 GM POWDER UD BTL TOP SCH ×2 (09:55→18:47)
[2017-09-23] MEDS: VANCOMYCIN 1GM/NS 250 ML 250 ML IV SCH (09:55)
[2017-09-23] MEDS: ZINC SULFATE 220 MG CAP PO SCH ×2 (09:55→18:47)
[2017-09-23] MEDS: FAMOTIDINE 20 MG TAB PO SCH ×2 (09:56→21:00)
[2017-09-23] MEDS: METOCLOPRAMIDE HCL 10 MG TAB PO SCH ×2 (09:56→21:00)
[2017-09-23 12:22] VITALS: BP 106/55
[2017-09-23 16:00] VITALS: BP 147/74
[2017-09-23] MEDS: FLUCONAZOLE 200 MG/100 ML 100 ML IV SCH (16:12)
--- NOTE | 2017-09-23 17:03 | Diagnostic Imaging Report ---
EXAMINATION: Chest, CHEST SINGLE (PORTABLE) INDICATION: Chest pain COMPARISON: Portable chest 09/21/2017 FINDINGS: LINES: None. Heart: Normal cardiac silhouette. Vascular: The pulmonary vasculature is within normal limits. Atherosclerotic calcifications of the aortic arch. Mediastinum: No mediastinal, hilar, or axillary mass or lymphadenopathy. Lungs: No parenchymal mass. Airspace opacity is present in the left lung base. Pleura: No pleural effusion. No pneumothorax. Bones: No acute osseous abnormality. Degenerative changes of the thoracic spine. Soft tissues: Normal. Impression: Left lung base airspace opacity likely represent a developing pneumonia. Signed by: Dr. Cem Colon M.D. on 09/23/2017 5:00 PM
[2017-09-23 20:00] VITALS: BP 147/83
[2017-09-24] VITALS: BP 110/64
[2017-09-24 04:00] VITALS: BP 123/74
[2017-09-24 05:15] VITALS: BP 110/64
[2017-09-24] MEDS: PIPER-TAZ 3.375 GM 50 ML IV SCH ×3 (05:55→22:00)
[2017-09-24] MEDS: ACETAMINOPHEN 325 MG/10 ML UDC PEG PRN (05:56)
[2017-09-24 06:08] LABS: BASOPHILS % 0.3 % (0.0-1.0); EOSINOPHILS # (AUTO) 0.2 (0.0-0.4); EOSINOPHILS % 1.6 % (0.0-6.0); HEMATOCRIT 33.8 % (38.2-49.6); HEMOGLOBIN 10.9 g/dL (14.0-18.0); LYMPHOCYTES # (AUTO) 2.5 (1.0-3.2); LYMPHOCYTES % 21.6 % (18.0-39.1); MEAN CORPUSCULAR HEMOGLOBIN 27.2 pg (28-32); MEAN CORPUSCULAR HGB CONC 32.2 g/dL (31-35); MEAN CORPUSCULAR VOLUME 84.3 fL (81-99); MONOCYTES # (AUTO) 1.6 (0.2-0.8); MONOCYTES % 13.9 % (4.4-11.3); NEUTROPHILS # (AUTO) 7.1 (2.1-6.9); PLATELET COUNT 213 x10e3/uL (140-360); RED BLOOD COUNT 4.01 x10e6/uL (4.3-5.7); RED CELL DISTRIBUTION WIDTH 18.2 % (11.7-14.4)
[2017-09-24 06:38] LABS: ANION GAP 12.4 mmol/L (8-16); BLOOD UREA NITROGEN 9 mg/dL (7-26); BUN/CREATININE RATIO 15 (6-25); CALCIUM 9.5 mg/dL (8.4-10.2); CARBON DIOXIDE 24 mmol/L (22-29); CHLORIDE 102 mmol/L (98-107); CREATININE, SERUM 0.61 mg/dL (0.72-1.25); EST GLOMERULAR FILTRATION RATE > 60 ML/MIN (60-); GLUCOSE 107 mg/dL (74-118); POTASSIUM 4.4 mmol/L (3.5-5.1); SODIUM 134 mmol/L (136-145)
[2017-09-24 08:06] VITALS: BP 101/66
[2017-09-24] MEDS: MAGNESIUM OXIDE 400 MG TAB PO SCH ×2 (08:51→18:34)
[2017-09-24] MEDS: FERROUS SULFATE 300 MG/5 ML LIQD GT SCH (08:51)
[2017-09-24] MEDS: OYST-CAL-D 500MG TABLET PO SCH ×2 (08:51→18:34)
[2017-09-24] MEDS: ASCORBIC ACID 500 MG TAB PO SCH ×2 (08:51→18:34)
[2017-09-24] MEDS: ZINC SULFATE 220 MG CAP PO SCH ×2 (08:51→18:34)
[2017-09-24] MEDS: METOCLOPRAMIDE HCL 10 MG TAB PO SCH ×2 (08:52→21:00)
[2017-09-24] MEDS: BALSAM PERU/CASTOR OIL 60 GM OINT...G. TP SCH ×2 (08:52→18:34)
[2017-09-24] MEDS: VALPROATE 250MG/5ML ORAL LIQ 5ml PEG SCH ×2 (08:52→21:00)
[2017-09-24] MEDS: FAMOTIDINE 20 MG TAB PO SCH ×2 (08:52→21:00)
[2017-09-24] MEDS: NYSTATIN/TRIAMCINOLONE 15 GM CR TOP SCH ×2 (08:52→18:34)
[2017-09-24] MEDS: VANCOMYCIN 1GM/NS 250 ML 250 ML IV SCH (08:52)
[2017-09-24] MEDS: MULTIVITAMINS 5 ML LIQUID PEG SCH (08:52)
[2017-09-24] MEDS: ASPIRIN 81 MG CHEW TAB PEG SCH (08:52)
[2017-09-24] MEDS: FLUCONAZOLE 200 MG/100 ML 100 ML IV SCH (10:28)
[2017-09-24] MEDS: NYSTATIN 15 GM POWDER UD BTL TOP SCH ×2 (10:28→18:34)
[2017-09-24 12:05] VITALS: BP 103/70
[2017-09-24 16:30] VITALS: BP 118/69
[2017-09-25] MEDS: PIPER-TAZ 3.375 GM 50 ML IV SCH (06:00)
[2017-09-25 07:03] LABS: BASOPHILS % 0.4 % (0.0-1.0); EOSINOPHILS # (AUTO) 0.2 (0.0-0.4); EOSINOPHILS % 1.8 % (0.0-6.0); HEMATOCRIT 28.3 % (38.2-49.6); HEMOGLOBIN 9.1 g/dL (14.0-18.0); LYMPHOCYTES # (AUTO) 2.5 (1.0-3.2); LYMPHOCYTES % 21.8 % (18.0-39.1); MEAN CORPUSCULAR HGB CONC 32.2 g/dL (31-35); MONOCYTES # (AUTO) 1.3 (0.2-0.8); MONOCYTES % 11.5 % (4.4-11.3); NEUTROPHILS # (AUTO) 7.3 (2.1-6.9); NEUTROPHILS % 63.9 % (38.7-80.0); PLATELET COUNT 377 x10e3/uL (140-360); RED BLOOD COUNT 3.37 x10e6/uL (4.3-5.7); RED CELL DISTRIBUTION WIDTH 18.3 % (11.7-14.4)
[2017-09-25 07:34] LABS: ANION GAP 11.4 mmol/L (8-16); BLOOD UREA NITROGEN 10 mg/dL (7-26); BUN/CREATININE RATIO 18 (6-25); CALCIUM 9.2 mg/dL (8.4-10.2); CARBON DIOXIDE 23 mmol/L (22-29); CHLORIDE 101 mmol/L (98-107); CREATININE, SERUM 0.56 mg/dL (0.72-1.25); EST GLOMERULAR FILTRATION RATE > 60 ML/MIN (60-); GLUCOSE 99 mg/dL (74-118); MAGNESIUM 1.6 MG/DL (1.3-2.1); POTASSIUM 4.4 mmol/L (3.5-5.1); SODIUM 131 mmol/L (136-145)
[2017-09-25 08:00] VITALS: BP 118/69
[2017-09-25] MEDS: ASCORBIC ACID 500 MG TAB PO SCH ×2 (08:00→17:00)
[2017-09-25] MEDS: MAGNESIUM OXIDE 400 MG TAB PO SCH ×2 (08:00→17:00)
[2017-09-25] MEDS: OYST-CAL-D 500MG TABLET PO SCH ×2 (08:00→17:00)
[2017-09-25] MEDS: ZINC SULFATE 220 MG CAP PO SCH ×2 (08:00→17:00)
[2017-09-25 08:27] VITALS: BP 123/84
--- NOTE | 2017-09-25 08:51 | Consultation ---
DATE OF CONSULTATION: Mr. Meadows is totally confused and cannot provide any meaningful information. He is known to me from before. The patient has multiple wounds with multiple pathogens. The patient comes from a halfway. He is coming with fever and chills. He was transferred to [facility]. The patient was concerned to have UTI. He does have osteomyelitis of the right 5th metatarsal. The patient has history of CVA, quadriplegia, dysphagia, history of seizure disorder, history of dementia, status post PEG tube placement, history of congestive heart failure, bedbound, does not provide any meaningful information. Patient was admitted. He was started on vancomycin and Zosyn. He continues to have fever. There was concern he may have fungemia, so fluconazole was started even though his blood cultures are negative. The patient seems to be better with fluconazole so far. His temperature is trending down. PHYSICAL EXAMINATION GENERAL: He is totally confused. VITALS: Stable. Currently T max 100.5. HEENT: Not icteric. NECK: Supple. CHEST: A few crackles bilaterally. COR: No murmur. ABDOMEN: Soft. Bowel sounds are present. EXTREMITIES: No edema. IMPRESSION 1. Pneumonia, aspiration. 2. Colonization, multidrug resistant. 3. Possible fungemia. 4. Colonization with Proteus mirabilis and methicillin-resistant Staphylococcus aureus as well as Acinetobacter baumannii. 5. Peripheral vascular disease. 6. Bilateral lower extremity ulcers deep to the bone. Prognosis is guarded. The patient may be a good candidate for comfort care. Will discuss with the family and the attending. Will follow with you. Job#: [id number]
[2017-09-25] MEDS: VALPROATE 250MG/5ML ORAL LIQ 5ml PEG SCH ×2 (09:00→20:34)
[2017-09-25] MEDS: MULTIVITAMINS 5 ML LIQUID PEG SCH (09:00)
[2017-09-25] MEDS: FERROUS SULFATE 300 MG/5 ML LIQD GT SCH (09:00)
[2017-09-25] MEDS: ASPIRIN 81 MG CHEW TAB PEG SCH (09:00)
[2017-09-25] MEDS: ACETAMINOPHEN 325 MG/10 ML UDC PEG PRN (09:00)
[2017-09-25] MEDS: NYSTATIN 15 GM POWDER UD BTL TOP SCH ×2 (09:00→17:00)
[2017-09-25] MEDS: BALSAM PERU/CASTOR OIL 60 GM OINT...G. TP SCH ×2 (09:00→17:00)
[2017-09-25] MEDS: NYSTATIN/TRIAMCINOLONE 15 GM CR TOP SCH ×2 (09:00→17:00)
[2017-09-25] MEDS: METOCLOPRAMIDE HCL 10 MG TAB PO SCH ×2 (09:00→20:34)
[2017-09-25] MEDS: FAMOTIDINE 20 MG TAB PO SCH ×2 (09:00→20:34)
[2017-09-25] MEDS: VANCOMYCIN 1GM/NS 250 ML 250 ML IV SCH (09:00)
[2017-09-25] MEDS: FLUCONAZOLE 200 MG/100 ML 100 ML IV SCH (10:30)
[2017-09-25] MEDS ORDERED: SODIUM CHLORIDE 0.9% 250ML 250 ML ONE (10:56)
[2017-09-25 12:12] VITALS: BP 110/73
[2017-09-25 16:20] VITALS: BP 143/82
[2017-09-25 20:00] VITALS: BP 133/85
[2017-09-26] VITALS: BP 135/71
[2017-09-26 04:00] VITALS: BP 121/70
[2017-09-26] MEDS: ACETAMINOPHEN 325 MG/10 ML UDC PEG PRN (05:13)
[2017-09-26 06:19] LABS: BASOPHILS % 0.4 % (0.0-1.0); EOSINOPHILS # (AUTO) 0.3 (0.0-0.4); EOSINOPHILS % 2.8 % (0.0-6.0); HEMATOCRIT 27.5 % (38.2-49.6); HEMOGLOBIN 8.8 g/dL (14.0-18.0); LYMPHOCYTES # (AUTO) 2.5 (1.0-3.2); LYMPHOCYTES % 24.7 % (18.0-39.1); MEAN CORPUSCULAR HEMOGLOBIN 27.2 pg (28-32); MEAN CORPUSCULAR VOLUME 84.9 fL (81-99); MONOCYTES % 9.5 % (4.4-11.3); NEUTROPHILS # (AUTO) 6.3 (2.1-6.9); PLATELET COUNT 400 x10e3/uL (140-360); RED BLOOD COUNT 3.24 x10e6/uL (4.3-5.7); RED CELL DISTRIBUTION WIDTH 18.5 % (11.7-14.4)
[2017-09-26 06:36] LABS: ANION GAP 12.1 mmol/L (8-16); BLOOD UREA NITROGEN 10 mg/dL (7-26); BUN/CREATININE RATIO 17 (6-25); CALCIUM 9.1 mg/dL (8.4-10.2); CARBON DIOXIDE 22 mmol/L (22-29); CHLORIDE 102 mmol/L (98-107); CREATININE, SERUM 0.59 mg/dL (0.72-1.25); EST GLOMERULAR FILTRATION RATE > 60 ML/MIN (60-); GLUCOSE 95 mg/dL (74-118); POTASSIUM 4.1 mmol/L (3.5-5.1); SODIUM 132 mmol/L (136-145)
[2017-09-26] MEDS ORDERED: SODIUM CHLORIDE 0.9% 500ML 500 ML IV ONE (08:15)
[2017-09-26 08:19] VITALS: BP 133/79
[2017-09-26] MEDS: OYST-CAL-D 500MG TABLET PO SCH ×2 (08:57→18:03)
[2017-09-26] MEDS: ZINC SULFATE 220 MG CAP PO SCH ×2 (08:57→18:03)
[2017-09-26] MEDS: FAMOTIDINE 20 MG TAB PO SCH ×2 (08:57→20:49)
[2017-09-26] MEDS: FERROUS SULFATE 300 MG/5 ML LIQD GT SCH (08:57)
[2017-09-26] MEDS: BALSAM PERU/CASTOR OIL 60 GM OINT...G. TP SCH ×2 (08:57→18:04)
[2017-09-26] MEDS: ASCORBIC ACID 500 MG TAB PO SCH ×2 (08:57→18:03)
[2017-09-26] MEDS: MULTIVITAMINS 5 ML LIQUID PEG SCH (08:57)
[2017-09-26] MEDS: METOCLOPRAMIDE HCL 10 MG TAB PO SCH ×2 (08:57→20:49)
[2017-09-26] MEDS: MAGNESIUM OXIDE 400 MG TAB PO SCH ×2 (08:57→18:03)
[2017-09-26] MEDS: ASPIRIN 81 MG CHEW TAB PEG SCH (08:57)
[2017-09-26] MEDS: NYSTATIN/TRIAMCINOLONE 15 GM CR TOP SCH ×2 (08:57→18:03)
[2017-09-26] MEDS: VALPROATE 250MG/5ML ORAL LIQ 5ml PEG SCH ×2 (08:57→20:49)
[2017-09-26] MEDS: NYSTATIN 15 GM POWDER UD BTL TOP SCH ×2 (09:00→18:03)
--- NOTE | 2017-09-26 09:12 | Progress Note ---
DATE: September 26, 2017 SUBJECTIVE: This 77-year-old male with a history of stroke, severe upper and lower extremity contractures, coronary artery disease with congestive heart failure seen at bedside today. He was admitted 1 week ago for sepsis from bilateral lower extremity ulcerations. He is more alert and oriented today than he was on admission. He is able to speak clear. He does relate that he feels better. Does not appear to be in any acute distress. OBJECTIVE VITAL SIGNS: Today, temperature is 96, heart rate 85, respiratory rate 18, blood pressure 133/79, pulse ox is 100% on nasal cannula at 2 L. LOWER EXTREMITY PHYSICAL EXAMINATION VASCULAR: Dorsalis pedis and posterior tibial pulses are nonpalpable. Capillary refill time is delayed to the digits. The foot is warm to the touch. NEUROLOGICAL: Sensation is difficult to be determined. However, the patient does express pain when moving all lower extremities. MUSCULOSKELETAL: Severe contractures at the hip and knee joint, as well as the upper extremities. Zero/5 muscle strength in bilateral lower extremities. Grimaces to pain on palpation or moving or positioning the patient. DERMATOLOGICAL: Multiple ulcerations are noted to bilateral lower extremities. The deepest ulceration is to the right 5th metatarsal head and proximal phalanx of the 5th digit. The wound is dry with fibrotic tissue. Drainage significantly improved. Wound to the right lateral malleolus is 100% fibrotic with no evidence of periwound erythema, edema or drainage. Proximal leg ulcerations continue to improve and be superficial. Deep ulceration is noted to the patient's right heel, which again is improved with no evidence of drainage. Left heel ulceration is small with hyperkeratotic tissue. Again, no drainage or acute signs of infection. Lateral malleolar wound to the left is dry on this visit. Negative periwound erythema. The medial aspect of the left lower leg superficial ulcerations are again all improved. LABS: White blood cell count today is 10.3, hemoglobin 8.8, hematocrit 27.5, and platelet count is 18.5. Sodium 132, potassium 4.1, chloride 102, BUN 10, creatinine 0.59, glucose 126. Repeat blood culture is negative after 48 hours. ASSESSMENT 1. Bilateral lower extremity ulcerations with osteomyelitis. 2. Sepsis. 3. Status post stroke with severe upper and lower extremity contractures. PLAN: Patient was seen and evaluated. Discussed condition and treatment options with the patient in detail. The patient's leukocytosis has resolved, and fever has improved. He did develop aspiration pneumonia over the last several days. Will continue local wound care to bilateral lower extremities with dressing changes with Xeroform, 4 x 4's, Kerlix, and offloading with Pergalen boots and air bed. Will continue antibiotics and local wound care. Recommendation continues to be palliative care. The patient is currently being worked on to be transferred to a facility, [facility] or [facility] in [place]. The podiatry service will continue to monitor as an inpatient. Job#: [id number] HAIR
[2017-09-26 11:47] VITALS: BP 121/70
[2017-09-26 16:30] VITALS: BP 109/69
[2017-09-26 19:37] VITALS: BP 118/76
[2017-09-27 00:57] VITALS: BP 117/76
[2017-09-27 06:01] LABS: BASOPHILS # (AUTO) 0.1 (0.0-0.1); BASOPHILS % 0.5 % (0.0-1.0); EOSINOPHILS # (AUTO) 0.3 (0.0-0.4); EOSINOPHILS % 3.4 % (0.0-6.0); HEMATOCRIT 28.9 % (38.2-49.6); HEMOGLOBIN 9.4 g/dL (14.0-18.0); LYMPHOCYTES # (AUTO) 2.3 (1.0-3.2); LYMPHOCYTES % 24.4 % (18.0-39.1); MEAN CORPUSCULAR HEMOGLOBIN 27.2 pg (28-32); MEAN CORPUSCULAR HGB CONC 32.5 g/dL (31-35); MEAN CORPUSCULAR VOLUME 83.5 fL (81-99); MONOCYTES # (AUTO) 0.8 (0.2-0.8); MONOCYTES % 8.7 % (4.4-11.3); NEUTROPHILS # (AUTO) 5.9 (2.1-6.9); NEUTROPHILS % 62.4 % (38.7-80.0); PLATELET COUNT 470 x10e3/uL (140-360); RED BLOOD COUNT 3.46 x10e6/uL (4.3-5.7); RED CELL DISTRIBUTION WIDTH 18.1 % (11.7-14.4)
[2017-09-27 06:20] LABS: ANION GAP 12.3 mmol/L (8-16); BLOOD UREA NITROGEN 12 mg/dL (7-26); BUN/CREATININE RATIO 20 (6-25); CALCIUM 9.6 mg/dL (8.4-10.2); CARBON DIOXIDE 22 mmol/L (22-29); CHLORIDE 102 mmol/L (98-107); CREATININE, SERUM 0.59 mg/dL (0.72-1.25); EST GLOMERULAR FILTRATION RATE > 60 ML/MIN (60-); GLUCOSE 85 mg/dL (74-118); POTASSIUM 4.3 mmol/L (3.5-5.1); SODIUM 132 mmol/L (136-145)
[2017-09-27 06:41] VITALS: BP 142/85
[2017-09-27 08:00] VITALS: BP 138/89
[2017-09-27] MEDS: ASPIRIN 81 MG CHEW TAB PEG SCH (08:16)
[2017-09-27] MEDS: FAMOTIDINE 20 MG TAB PO SCH ×2 (08:16→20:27)
[2017-09-27] MEDS: MAGNESIUM OXIDE 400 MG TAB PO SCH ×2 (08:16→16:47)
[2017-09-27] MEDS: OYST-CAL-D 500MG TABLET PO SCH ×2 (08:16→16:47)
[2017-09-27] MEDS: FERROUS SULFATE 300 MG/5 ML LIQD GT SCH (08:16)
[2017-09-27] MEDS: VALPROATE 250MG/5ML ORAL LIQ 5ml PEG SCH ×2 (08:16→20:27)
[2017-09-27] MEDS: NYSTATIN/TRIAMCINOLONE 15 GM CR TOP SCH ×2 (08:16→16:47)
[2017-09-27] MEDS: ZINC SULFATE 220 MG CAP PO SCH ×2 (08:16→16:47)
[2017-09-27] MEDS: BALSAM PERU/CASTOR OIL 60 GM OINT...G. TP SCH ×2 (08:16→16:47)
[2017-09-27] MEDS: ASCORBIC ACID 500 MG TAB PO SCH ×2 (08:16→16:47)
[2017-09-27] MEDS: METOCLOPRAMIDE HCL 10 MG TAB PO SCH ×2 (08:16→20:27)
[2017-09-27] MEDS: MULTIVITAMINS 5 ML LIQUID PEG SCH (08:16)
[2017-09-27 12:00] VITALS: BP 119/73
[2017-09-27 16:00] VITALS: BP 127/70
[2017-09-27] MEDS: ACETAMINOPHEN 325 MG/10 ML UDC PEG PRN (16:48)
[2017-09-27 20:00] VITALS: BP 118/58
[2017-09-28] VITALS: BP_SYST 139; BP_SYST 142; BP_DIAS 69; BP_DIAS 71
[2017-09-28] MEDS: ALBUTEROL/IPRATROPIUM 3 ML NEB NEB SCH ×3 (07:00→20:15)
--- NOTE | 2017-09-28 08:23 | Progress Note ---
DATE: September 28, 2017 SUBJECTIVE: This is a 77-year-old male with a history of stroke, severe upper and lower extremity contractures, coronary artery disease, congestive heart failure, seen at bedside today. He was admitted approximately 9 days ago for sepsis and bilateral lower extremity ulcerations. He continues to be more alert and oriented than he was on admission. He was able to speak clearly. Continues to relate that he feels better. Does not appear to be in any acute distress. OBJECTIVE VITAL SIGNS: Today, temperature is 100.1, pulse 104, blood pressure 139/69, respiratory rate 18, pulse ox is 98% on 2 L nasal cannula. LOWER EXTREMITY PHYSICAL EXAMINATION VASCULAR: Dorsalis pedis and posterior tibial pulses are nonpalpable. Capillary refill time is delayed to the digits of the foot. However, is warm to the touch. NEUROLOGICAL: Sensation is difficult to be determined. However, the patient does express pain when positioning. MUSCULOSKELETAL: Severe contractures at the hip and knee joint, as well as upper extremities. Zero/5 muscle strength in bilateral lower extremities. Pain on palpation when moving or positioning the patient. DERMATOLOGICAL: Multiple ulcerations are noted to bilateral lower extremities. Deepest ulcerations are noted to the right 5th metatarsal head and proximal phalanx, as well as the right heel. The wounds are dry with improvement in granulation tissue. No drainage at this time. Wound to the lateral malleolus is significantly improved, approximately 50% granular to 50% fibrotic tissue. The proximal leg ulcerations are superficial and continue to improve at this time. Left heel ulceration has improved with mild hyperkeratotic tissue to the periwound. Lateral malleolar wound has significantly improved with about 50% granulation tissue with 50% fibrotic tissue. All wounds have significantly improved. Negative erythema, edema or drainage is noted. LABS: White blood cell count today is 9.53, hemoglobin 9.4, hematocrit 28.9, and platelet count 470,000. Sodium 132, potassium 4.3, chloride 102, CO2 22, BUN 12, creatinine 0.59, glucose 87. ASSESSMENT 1. Bilateral lower extremity ulcerations with osteomyelitis, sepsis. 2. Status post stroke with severe upper and lower extremity contractures. PLAN: Patient was seen and evaluated. Discussed condition and treatment options with the patient in detail. Patient's leukocytosis has resolved, but continues to have intermittent fever. The infections does not appear to be coming from the lower extremities. He did develop aspiration pneumonia over the last several days. Will continue local wound to bilateral lower extremities with dressing change with Xeroform, 4 x 4's, Kerlix, Maxorb, and collagen. Continue offloading with Prevalon boots and air bed. Antibiotics were discontinued at this time per infectious disease. Recommendation continues to be palliative care. The patient is currently being worked on to be transferred to a facility in [place]. Patient is stable to be discharged per podiatry. Podiatry service will continue to monitor as an inpatient. Job#: [id number] HAIR KINNEY
[2017-09-28 08:24] VITALS: BP 125/62
[2017-09-28] MEDS: VALPROATE 250MG/5ML ORAL LIQ 5ml PEG SCH ×2 (08:26→21:43)
[2017-09-28] MEDS: MULTIVITAMINS 5 ML LIQUID PEG SCH (08:26)
[2017-09-28] MEDS: MAGNESIUM OXIDE 400 MG TAB PO SCH ×2 (08:26→16:57)
[2017-09-28] MEDS: FAMOTIDINE 20 MG TAB PO SCH ×2 (08:26→21:43)
[2017-09-28] MEDS: NYSTATIN/TRIAMCINOLONE 15 GM CR TOP SCH ×2 (08:26→16:57)
[2017-09-28] MEDS: METOCLOPRAMIDE HCL 10 MG TAB PO SCH ×2 (08:26→21:43)
[2017-09-28] MEDS: ASPIRIN 81 MG CHEW TAB PEG SCH (08:26)
[2017-09-28] MEDS: OYST-CAL-D 500MG TABLET PO SCH ×2 (08:26→16:57)
[2017-09-28] MEDS: ZINC SULFATE 220 MG CAP PO SCH ×2 (08:26→16:57)
[2017-09-28] MEDS: FERROUS SULFATE 300 MG/5 ML LIQD GT SCH (08:26)
[2017-09-28] MEDS: BALSAM PERU/CASTOR OIL 60 GM OINT...G. TP SCH ×2 (08:26→16:57)
[2017-09-28] MEDS: ASCORBIC ACID 500 MG TAB PO SCH ×2 (08:26→16:57)
[2017-09-28 13:09] VITALS: BP 120/66
--- NOTE | 2017-09-28 15:50 | Diagnostic Imaging Report ---
PROCEDURE: A single AP view of the chest. COMPARISON: Chest radiograph 09/23/2017 and 09/16/2017. INDICATIONS: FEVER FINDINGS: The heart, pleura, soft tissues, and bones are unchanged. See impression. IMPRESSION: Stable appearance of the left basilar opacities which may represent pneumonia in the appropriate clinical context. Similar appearance to 09/16/2017 may suggest other etiology such as pleural plaque. Consider chest CT for further evaluation. Dictated by: Costa Tejada M.D. on 09/28/2017 at 16:00 Electronically approved by: Costa Tejada M.D. on 09/28/2017 at 16:00
[2017-09-28 17:38] VITALS: BP 116/66
[2017-09-28 20:00] VITALS: BP 136/72
[2017-09-29] MEDS: ALBUTEROL/IPRATROPIUM 3 ML NEB NEB SCH ×4 (01:00→19:10)
[2017-09-29 04:00] VITALS: BP 135/76
[2017-09-29 06:48] LABS: BASOPHILS # (AUTO) 0.1 (0.0-0.1); BASOPHILS % 0.4 % (0.0-1.0); EOSINOPHILS # (AUTO) 0.2 (0.0-0.4); EOSINOPHILS % 1.9 % (0.0-6.0); HEMATOCRIT 30.8 % (38.2-49.6); HEMOGLOBIN 9.8 g/dL (14.0-18.0); LYMPHOCYTES # (AUTO) 2.9 (1.0-3.2); LYMPHOCYTES % 22.8 % (18.0-39.1); MEAN CORPUSCULAR HEMOGLOBIN 27.1 pg (28-32); MEAN CORPUSCULAR HGB CONC 31.8 g/dL (31-35); MEAN CORPUSCULAR VOLUME 85.3 fL (81-99); MONOCYTES # (AUTO) 1.2 (0.2-0.8); MONOCYTES % 9.4 % (4.4-11.3); NEUTROPHILS # (AUTO) 8.2 (2.1-6.9); NEUTROPHILS % 64.8 % (38.7-80.0); PLATELET COUNT 356 x10e3/uL (140-360); RED BLOOD COUNT 3.61 x10e6/uL (4.3-5.7); RED CELL DISTRIBUTION WIDTH 18.4 % (11.7-14.4)
[2017-09-29 07:16] LABS: ANION GAP 13.4 mmol/L (8-16); BLOOD UREA NITROGEN 12 mg/dL (7-26); BUN/CREATININE RATIO 21 (6-25); CALCIUM 9.8 mg/dL (8.4-10.2); CARBON DIOXIDE 21 mmol/L (22-29); CHLORIDE 101 mmol/L (98-107); CREATININE, SERUM 0.56 mg/dL (0.72-1.25); EST GLOMERULAR FILTRATION RATE > 60 ML/MIN (60-); GLUCOSE 89 mg/dL (74-118); MAGNESIUM 1.7 MG/DL (1.3-2.1); PHOSPHORUS 3.4 MG/DL (2.3-4.7); POTASSIUM 4.4 mmol/L (3.5-5.1); SODIUM 131 mmol/L (136-145)
[2017-09-29 08:00] VITALS: BP 152/84
[2017-09-29] MEDS: MAGNESIUM OXIDE 400 MG TAB PO SCH ×2 (10:01→17:20)
[2017-09-29] MEDS: ASCORBIC ACID 500 MG TAB PO SCH ×2 (10:01→17:20)
[2017-09-29] MEDS: FAMOTIDINE 20 MG TAB PO SCH ×2 (10:01→21:26)
[2017-09-29] MEDS: ASPIRIN 81 MG CHEW TAB PEG SCH (10:01)
[2017-09-29] MEDS: MULTIVITAMINS 5 ML LIQUID PEG SCH (10:01)
[2017-09-29] MEDS: ZINC SULFATE 220 MG CAP PO SCH ×2 (10:01→17:20)
[2017-09-29] MEDS: VALPROATE 250MG/5ML ORAL LIQ 5ml PEG SCH ×2 (10:01→21:26)
[2017-09-29] MEDS: OYST-CAL-D 500MG TABLET PO SCH ×2 (10:01→17:20)
[2017-09-29] MEDS: METOCLOPRAMIDE HCL 10 MG TAB PO SCH ×2 (10:01→21:26)
[2017-09-29] MEDS: FERROUS SULFATE 300 MG/5 ML LIQD GT SCH (10:02)
[2017-09-29] MEDS: NYSTATIN/TRIAMCINOLONE 15 GM CR TOP SCH ×2 (10:08→17:20)
[2017-09-29] MEDS: BALSAM PERU/CASTOR OIL 60 GM OINT...G. TP SCH ×2 (10:08→17:20)
[2017-09-29 11:16] VITALS: BP 143/72
[2017-09-29 12:00] VITALS: BP 143/72
[2017-09-29 16:00] VITALS: BP 144/86
[2017-09-29 20:00] VITALS: BP 129/70
[2017-09-29] MEDS: ACETAMINOPHEN 325 MG/10 ML UDC PEG PRN (21:26)
[2017-09-29] MEDS: METOPROLOL SUCCINATE 25 MG TAB XL PO SCH (21:26)
[2017-09-29] MEDS ORDERED: MAGNESIUM SULFATE 2GM/50ML 50 ML IV ONE (21:30)
[2017-09-30] VITALS: BP 124/73
[2017-09-30] MEDS: ALBUTEROL/IPRATROPIUM 3 ML NEB NEB SCH ×4 (01:00→19:45)
[2017-09-30 04:00] VITALS: BP 121/83
[2017-09-30 06:00] LABS: BASOPHILS # (AUTO) 0.1 (0.0-0.1); BASOPHILS % 0.5 % (0.0-1.0); EOSINOPHILS # (AUTO) 0.3 (0.0-0.4); EOSINOPHILS % 1.5 % (0.0-6.0); HEMATOCRIT 29.9 % (38.2-49.6); HEMOGLOBIN 9.6 g/dL (14.0-18.0); LYMPHOCYTES % 17.9 % (18.0-39.1); MEAN CORPUSCULAR HEMOGLOBIN 26.8 pg (28-32); MEAN CORPUSCULAR HGB CONC 32.1 g/dL (31-35); MEAN CORPUSCULAR VOLUME 83.5 fL (81-99); MONOCYTES # (AUTO) 1.8 (0.2-0.8); MONOCYTES % 11.1 % (4.4-11.3); NEUTROPHILS # (AUTO) 11.2 (2.1-6.9); NEUTROPHILS % 68.2 % (38.7-80.0); PLATELET COUNT 534 x10e3/uL (140-360); RED BLOOD COUNT 3.58 x10e6/uL (4.3-5.7); RED CELL DISTRIBUTION WIDTH 18.1 % (11.7-14.4)
[2017-09-30 06:18] LABS: ANION GAP 13.1 mmol/L (8-16); BLOOD UREA NITROGEN 12 mg/dL (7-26); BUN/CREATININE RATIO 20 (6-25); CALCIUM 9.4 mg/dL (8.4-10.2); CARBON DIOXIDE 22 mmol/L (22-29); CHLORIDE 102 mmol/L (98-107); CREATININE, SERUM 0.59 mg/dL (0.72-1.25); EST GLOMERULAR FILTRATION RATE > 60 ML/MIN (60-); GLUCOSE 90 mg/dL (74-118); MAGNESIUM 1.8 MG/DL (1.3-2.1); PHOSPHORUS 3.9 MG/DL (2.3-4.7); POTASSIUM 4.1 mmol/L (3.5-5.1); SODIUM 133 mmol/L (136-145)
[2017-09-30 08:04] VITALS: BP 131/76
[2017-09-30] MEDS: FAMOTIDINE 20 MG TAB PO SCH ×2 (08:17→20:51)
[2017-09-30] MEDS: ZINC SULFATE 220 MG CAP PO SCH ×2 (08:17→16:40)
[2017-09-30] MEDS: ASCORBIC ACID 500 MG TAB PO SCH ×2 (08:17→16:40)
[2017-09-30] MEDS: MULTIVITAMINS 5 ML LIQUID PEG SCH (08:17)
[2017-09-30] MEDS: METOCLOPRAMIDE HCL 10 MG TAB PO SCH ×2 (08:17→20:51)
[2017-09-30] MEDS: ASPIRIN 81 MG CHEW TAB PEG SCH (08:17)
[2017-09-30] MEDS: MAGNESIUM OXIDE 400 MG TAB PO SCH ×2 (08:17→16:40)
[2017-09-30] MEDS: VALPROATE 250MG/5ML ORAL LIQ 5ml PEG SCH ×2 (08:17→20:51)
[2017-09-30] MEDS: METOPROLOL SUCCINATE 25 MG TAB XL PO SCH ×2 (08:17→20:51)
[2017-09-30] MEDS: OYST-CAL-D 500MG TABLET PO SCH ×2 (08:17→16:40)
[2017-09-30] MEDS: ACETAMINOPHEN 325 MG/10 ML UDC PEG PRN ×2 (08:18→20:51)
[2017-09-30 08:43] LABS: ANISOCYTOSIS SLIGHT; BAND NEUTROPHILS % (MANUAL) 4 %; EOSINOPHILS % (MANUAL) 2 % (0-7); LYMPHOCYTES % (MANUAL) 7 % (19-48); MONOCYTES % (MANUAL) 5 % (3.4-9.0); NEUTROPHILS % (MANUAL) 81 % (40-74); PLATELET ESTIMATE MARKEDLY INCREASED; PLATELET MORPHOLOGY COMMENT NORMAL; RBC MORPHOLOGY COMMENT ABNORMAL
[2017-09-30] MEDS: NYSTATIN/TRIAMCINOLONE 15 GM CR TOP SCH ×2 (10:34→16:40)
[2017-09-30] MEDS: BALSAM PERU/CASTOR OIL 60 GM OINT...G. TP SCH ×2 (10:34→16:41)
[2017-09-30 12:01] VITALS: BP 116/70
[2017-09-30] MEDS: FERROUS SULFATE 300 MG/5 ML LIQD GT SCH (12:25)
[2017-09-30 15:42] VITALS: BP 153/82
[2017-09-30 20:00] VITALS: BP 112/61
[2017-10-01] VITALS (7 sets, daily range): BP systolic 119–162; BP diastolic 70–92
[2017-10-01] MEDS: ALBUTEROL/IPRATROPIUM 3 ML NEB NEB SCH ×4 (06:53→19:30)
[2017-10-01] MEDS: ASPIRIN 81 MG CHEW TAB PEG SCH (07:47)
[2017-10-01] MEDS: FAMOTIDINE 20 MG TAB PO SCH ×2 (07:47→20:43)
[2017-10-01] MEDS: METOCLOPRAMIDE HCL 10 MG TAB PO SCH ×2 (07:47→20:43)
[2017-10-01] MEDS: MULTIVITAMINS 5 ML LIQUID PEG SCH (07:47)
[2017-10-01] MEDS: VALPROATE 250MG/5ML ORAL LIQ 5ml PEG SCH ×2 (07:47→20:43)
[2017-10-01] MEDS: FERROUS SULFATE 300 MG/5 ML LIQD GT SCH (07:48)
[2017-10-01] MEDS: ASCORBIC ACID 500 MG TAB PO SCH ×2 (07:48→16:25)
[2017-10-01] MEDS: OYST-CAL-D 500MG TABLET PO SCH ×2 (07:48→16:25)
[2017-10-01] MEDS: ZINC SULFATE 220 MG CAP PO SCH ×2 (07:48→16:25)
[2017-10-01] MEDS: MAGNESIUM OXIDE 400 MG TAB PO SCH ×2 (07:48→16:25)
[2017-10-01] MEDS: METOPROLOL SUCCINATE 25 MG TAB XL PO SCH ×2 (07:48→20:43)
[2017-10-01 07:51] LABS: BASOPHILS # (AUTO) 0.1 (0.0-0.1); BASOPHILS % 0.7 % (0.0-1.0); EOSINOPHILS # (AUTO) 0.3 (0.0-0.4); EOSINOPHILS % 2.3 % (0.0-6.0); HEMATOCRIT 27.6 % (38.2-49.6); HEMOGLOBIN 8.7 g/dL (14.0-18.0); LYMPHOCYTES # (AUTO) 3.3 (1.0-3.2); LYMPHOCYTES % 25.7 % (18.0-39.1); MEAN CORPUSCULAR HEMOGLOBIN 26.7 pg (28-32); MEAN CORPUSCULAR HGB CONC 31.5 g/dL (31-35); MEAN CORPUSCULAR VOLUME 84.7 fL (81-99); MONOCYTES # (AUTO) 1.3 (0.2-0.8); MONOCYTES % 10.1 % (4.4-11.3); NEUTROPHILS # (AUTO) 7.8 (2.1-6.9); NEUTROPHILS % 60.7 % (38.7-80.0); PLATELET COUNT 367 x10e3/uL (140-360); RED BLOOD COUNT 3.26 x10e6/uL (4.3-5.7); RED CELL DISTRIBUTION WIDTH 18.6 % (11.7-14.4)
[2017-10-01 08:12] LABS: ANION GAP 12.1 mmol/L (8-16); BLOOD UREA NITROGEN 17 mg/dL (7-26); BUN/CREATININE RATIO 31 (6-25); CALCIUM 9.6 mg/dL (8.4-10.2); CARBON DIOXIDE 22 mmol/L (22-29); CHLORIDE 102 mmol/L (98-107); CREATININE, SERUM 0.55 mg/dL (0.72-1.25); EST GLOMERULAR FILTRATION RATE > 60 ML/MIN (60-); GLUCOSE 83 mg/dL (74-118); MAGNESIUM 1.7 MG/DL (1.3-2.1); PHOSPHORUS 3.6 MG/DL (2.3-4.7); POTASSIUM 4.1 mmol/L (3.5-5.1); SODIUM 132 mmol/L (136-145)
[2017-10-01] MEDS: NYSTATIN/TRIAMCINOLONE 15 GM CR TOP SCH ×2 (09:00→16:03)
[2017-10-01] MEDS: BALSAM PERU/CASTOR OIL 60 GM OINT...G. TP SCH ×2 (09:50→16:03)
--- NOTE | 2017-10-01 10:06 | Progress Note ---
DATE: SUBJECTIVE: This 77-year-old male with a past medical history of stroke, upper and lower extremity contractures, coronary artery disease, and congestive heart failure, was seen at bedside this a.m. He was admitted approximately 2 weeks ago for sepsis and bilateral lower extremity ulcerations. He is more alert and oriented on this visit than he was on admission. Dressings were being changed at this time, and the patient was uncomfortable. Does not appear to be in any acute distress. OBJECTIVE VITAL SIGNS: Today, temperature 98.9, heart rate 91, respiratory rate 19, blood pressure 131/71. Pulse ox is 97% on room air. PROBLEM-FOCUSED LOWER EXTREMITY PHYSICAL EXAMINATION VASCULAR: Dorsalis pedis and posterior tibial pulses are nonpalpable. Capillary refill time is delayed to the digits. However, the foot is warm to the touch. SENSATION: Difficult to be determined. However, the patient does express pain with positioning. MUSCULOSKELETAL: Severe contractures at the hip and knee as well as the upper extremities. Has 0/5 muscle strength in bilateral lower extremities. Pain on palpation when positioning the patient. DERMATOLOGICAL: Multiple ulcerations are noted to bilateral lower extremities. Deepest ulceration is noted to the right 5th head and proximal phalanx as well as the right heel. The right 5th metatarsal head and proximal phalanx have dry eschar with edema. No erythema, warmth or drainage is noted at this time. Ulceration to the right heel is improving with granulation tissue present. Wound to the lateral malleolus is improved and is 100% granular at this point. Proximal left leg ulcerations are superficial and scabbed and continue to improve at this time. Left heel ulcerations are improved as well with hyperkeratotic tissue to the periwound. Lateral malleolar wound continues to improve and is approximately 80% granular tissue to 20% fibrotic. All wounds to bilateral lower extremities have improved. Negative erythema, edema or drainage is noted at this time. LABS: White blood cell count today is 12.8, hemoglobin 8.7, hematocrit 27.6, and platelet count 367. Sodium 132, potassium 4.1, CO2 22, BUN 17, creatinine 0.55. PLAN: Patient was seen and evaluated. Discussed condition and treatment options with the patient in detail. Patient's leukocytosis was trending up and is trending down again to 12 on this visit. The infection does not appear to be coming from the lower extremities as all wounds continue to improve. He did develop aspiration pneumonia over the last several days. Continue local wound care to bilateral lower extremities with collagen dressings, Xeroform and Kerlix. Continue with Prevalon boots. Antibiotics were discontinued at this time per infectious disease due to fever. Podiatry recommendations continue to be palliative care. The patient is currently being worked on to be transferred to a nursing facility in [place]. Podiatry service will continue to monitor as an inpatient. Job#: [id number]
[2017-10-01 11:07] LABS: PLATELET MORPHOLOGY COMMENT MOD EDTA CLUMPING
[2017-10-01] MEDS: ACETAMINOPHEN 325 MG/10 ML UDC PEG PRN ×2 (12:05→20:44)
--- NOTE | 2017-10-01 13:26 | Diagnostic Imaging Report ---
EXAMINATION: Chest, CHEST 2 VIEWS INDICATION: Chest pain COMPARISON: Portable chest 09/23/2017 FINDINGS: LINES: None. Heart: Normal cardiac silhouette. Vascular: The pulmonary vasculature is within normal limits. Atherosclerotic calcifications of the aortic arch. Mediastinum: No mediastinal, hilar, or axillary mass or lymphadenopathy. Lungs: No parenchymal mass. No focal consolidation. Bibasilar atelectasis. Pleura: No pleural effusion. No pneumothorax. Bones: No acute osseous abnormality. Degenerative changes of the thoracic spine. Degenerative changes of the right shoulder. Soft tissues: Normal. Impression: No acute radiographic abnormality. Signed by: Dr. Cem Colon M.D. on 10/01/2017 1:23 PM
[2017-10-01] MEDS ORDERED: MEROPENEM 500MG 500 MG in SODIUM CHLORIDE 0.9% 50ML 50 ML IV SCH (14:00)
[2017-10-01] MEDS: MEROPENEM 500 MG VIAL IV SCH ×2 (14:10→22:14)
[2017-10-02] VITALS (7 sets, daily range): BP systolic 124–139; BP diastolic 61–86
[2017-10-02] MEDS: ALBUTEROL/IPRATROPIUM 3 ML NEB NEB SCH ×4 (00:30→20:00)
[2017-10-02] MEDS: MEROPENEM 500 MG VIAL IV SCH ×3 (05:22→20:39)
[2017-10-02] MEDS: FAMOTIDINE 20 MG TAB PO SCH ×2 (08:18→20:38)
[2017-10-02] MEDS: ASCORBIC ACID 500 MG TAB PO SCH ×2 (08:18→17:33)
[2017-10-02] MEDS: ASPIRIN 81 MG CHEW TAB PEG SCH (08:18)
[2017-10-02] MEDS: MAGNESIUM OXIDE 400 MG TAB PO SCH ×3 (08:18→17:33)
[2017-10-02] MEDS: VALPROATE 250MG/5ML ORAL LIQ 5ml PEG SCH ×2 (08:18→20:38)
[2017-10-02] MEDS: MULTIVITAMINS 5 ML LIQUID PEG SCH (08:18)
[2017-10-02] MEDS: OYST-CAL-D 500MG TABLET PO SCH ×2 (08:18→17:33)
[2017-10-02] MEDS: ZINC SULFATE 220 MG CAP PO SCH ×2 (08:18→17:33)
[2017-10-02] MEDS: METOCLOPRAMIDE HCL 10 MG TAB PO SCH ×2 (08:19→20:39)
[2017-10-02] MEDS: METOPROLOL SUCCINATE 25 MG TAB XL PO SCH ×2 (08:19→20:39)
[2017-10-02] MEDS: BALSAM PERU/CASTOR OIL 60 GM OINT...G. TP SCH ×2 (09:00→17:00)
[2017-10-02] MEDS: NYSTATIN/TRIAMCINOLONE 15 GM CR TOP SCH ×2 (09:00→17:00)
[2017-10-02] MEDS: FERROUS SULFATE 300 MG/5 ML LIQD GT SCH (17:47)
[2017-10-03] VITALS: BP 139/80
[2017-10-03] MEDS: ALBUTEROL/IPRATROPIUM 3 ML NEB NEB SCH ×4 (01:00→19:00)
[2017-10-03 04:00] VITALS: BP 123/63
[2017-10-03] MEDS: MEROPENEM 500 MG VIAL IV SCH ×3 (05:37→21:50)
[2017-10-03 07:01] LABS: BASOPHILS # (AUTO) 0.1 (0.0-0.1); BASOPHILS % 0.7 % (0.0-1.0); EOSINOPHILS # (AUTO) 0.2 (0.0-0.4); EOSINOPHILS % 1.6 % (0.0-6.0); HEMATOCRIT 31.9 % (38.2-49.6); HEMOGLOBIN 10.2 g/dL (14.0-18.0); LYMPHOCYTES # (AUTO) 1.9 (1.0-3.2); LYMPHOCYTES % 18.3 % (18.0-39.1); MEAN CORPUSCULAR VOLUME 84.4 fL (81-99); MONOCYTES # (AUTO) 1.5 (0.2-0.8); MONOCYTES % 14.1 % (4.4-11.3); NEUTROPHILS # (AUTO) 6.8 (2.1-6.9); NEUTROPHILS % 64.7 % (38.7-80.0); PLATELET COUNT 365 x10e3/uL (140-360); RED BLOOD COUNT 3.78 x10e6/uL (4.3-5.7); RED CELL DISTRIBUTION WIDTH 18.1 % (11.7-14.4)
[2017-10-03 07:35] LABS: ANION GAP 13.3 mmol/L (8-16); BLOOD UREA NITROGEN 15 mg/dL (7-26); BUN/CREATININE RATIO 27 (6-25); CARBON DIOXIDE 22 mmol/L (22-29); CHLORIDE 100 mmol/L (98-107); CREATININE, SERUM 0.56 mg/dL (0.72-1.25); EST GLOMERULAR FILTRATION RATE > 60 ML/MIN (60-); GLUCOSE 95 mg/dL (74-118); MAGNESIUM 1.6 MG/DL (1.3-2.1); POTASSIUM 4.3 mmol/L (3.5-5.1); SODIUM 131 mmol/L (136-145)
[2017-10-03 08:07] VITALS: BP 138/86
[2017-10-03] MEDS: MAGNESIUM OXIDE 400 MG TAB PO SCH ×3 (08:30→16:04)
[2017-10-03] MEDS: ASCORBIC ACID 500 MG TAB PO SCH ×2 (08:30→16:04)
[2017-10-03] MEDS: METOCLOPRAMIDE HCL 10 MG TAB PO SCH ×2 (08:30→21:50)
[2017-10-03] MEDS: OYST-CAL-D 500MG TABLET PO SCH ×2 (08:30→16:04)
[2017-10-03] MEDS: MULTIVITAMINS 5 ML LIQUID PEG SCH (08:30)
[2017-10-03] MEDS: ACETAMINOPHEN 325 MG/10 ML UDC PEG PRN ×3 (08:30→21:50)
[2017-10-03] MEDS: ASPIRIN 81 MG CHEW TAB PEG SCH (08:30)
[2017-10-03] MEDS: FAMOTIDINE 20 MG TAB PO SCH ×2 (08:30→21:50)
[2017-10-03] MEDS: VALPROATE 250MG/5ML ORAL LIQ 5ml PEG SCH ×2 (08:30→21:50)
[2017-10-03] MEDS: FERROUS SULFATE 300 MG/5 ML LIQD GT SCH (08:30)
[2017-10-03] MEDS: ZINC SULFATE 220 MG CAP PO SCH ×2 (08:30→16:04)
[2017-10-03] MEDS: METOPROLOL SUCCINATE 25 MG TAB XL PO SCH ×2 (08:30→21:50)
[2017-10-03] MEDS: NYSTATIN/TRIAMCINOLONE 15 GM CR TOP SCH ×2 (09:00→16:04)
[2017-10-03] MEDS: BALSAM PERU/CASTOR OIL 60 GM OINT...G. TP SCH ×2 (09:00→16:04)
[2017-10-03 12:58] VITALS: BP 133/79
[2017-10-03] MEDS ORDERED: SODIUM CHLORIDE 1 GM TAB PO ONE (13:00)
[2017-10-03 14:41] LABS: BILIRUBIN,URINE NEGATIVE (NEGATIVE); CLARITY,URINE CLEAR (CLEAR); COLOR,URINE YELLOW (YELLOW); KETONES,URINE NEGATIVE (NEGATIVE); LEUKOCYTE ESTERASE ,URINE NEGATIVE (NEGATIVE); NITRITE,URINE NEGATIVE (NEGATIVE); URINE UROBILINOGEN 0.2 mg/dL (0.2 - 1)
[2017-10-03 14:42] LABS: PROTEIN,URINE DIPSTICK 1+ (NEGATIVE)
[2017-10-03 14:49] LABS: RBC,URINE 21-50 /HPF (0-5); WBC,URINE (MAN) 0-5 /HPF (0-5)
[2017-10-03 14:50] LABS: BACTERIA,URINE RARE /HPF; CALCIUM OXALATE CRYSTALS,UR FEW (FEW); MUCUS,URINE FEW (RARE)
[2017-10-03 15:54] VITALS: BP 155/74
[2017-10-03 20:00] VITALS: BP 112/75
[2017-10-03] MEDS ORDERED: METOPROLOL TARTRATE INJ 1 MG/ML VIAL IV PRN (22:45)
[2017-10-04] VITALS (7 sets, daily range): BP systolic 99–125; BP diastolic 55–71
[2017-10-04] MEDS: ALBUTEROL/IPRATROPIUM 3 ML NEB NEB SCH ×3 (01:00→20:40)
[2017-10-04] MEDS: ACETAMINOPHEN 325 MG/10 ML UDC PEG PRN ×2 (03:43→16:59)
[2017-10-04] MEDS: MEROPENEM 500 MG VIAL IV SCH (05:26)
[2017-10-04 06:00] LABS: BASOPHILS # (AUTO) 0.1 (0.0-0.1); BASOPHILS % 0.3 % (0.0-1.0); EOSINOPHILS % 0.1 % (0.0-6.0); HEMATOCRIT 27.7 % (38.2-49.6); HEMOGLOBIN 8.8 g/dL (14.0-18.0); LYMPHOCYTES # (AUTO) 2.6 (1.0-3.2); LYMPHOCYTES % 11.4 % (18.0-39.1); MEAN CORPUSCULAR HEMOGLOBIN 26.5 pg (28-32); MEAN CORPUSCULAR HGB CONC 31.8 g/dL (31-35); MEAN CORPUSCULAR VOLUME 83.4 fL (81-99); MONOCYTES # (AUTO) 1.7 (0.2-0.8); MONOCYTES % 7.3 % (4.4-11.3); NEUTROPHILS # (AUTO) 18.5 (2.1-6.9); NEUTROPHILS % 80.3 % (38.7-80.0); PLATELET COUNT 453 x10e3/uL (140-360); RED BLOOD COUNT 3.32 x10e6/uL (4.3-5.7); RED CELL DISTRIBUTION WIDTH 18.3 % (11.7-14.4)
[2017-10-04 06:27] LABS: BLOOD UREA NITROGEN 27 mg/dL (7-26); BUN/CREATININE RATIO 43 (6-25); CALCIUM 9.3 mg/dL (8.4-10.2); CARBON DIOXIDE 22 mmol/L (22-29); CHLORIDE 104 mmol/L (98-107); CREATININE, SERUM 0.63 mg/dL (0.72-1.25); EST GLOMERULAR FILTRATION RATE > 60 ML/MIN (60-); GLUCOSE 124 mg/dL (74-118); SODIUM 135 mmol/L (136-145)
[2017-10-04 07:38] LABS: ANISOCYTOSIS MODERATE; HYPOCHROMASIA MODERATE; LYMPHOCYTES % (MANUAL) 15 % (19-48); MONOCYTES % (MANUAL) 6 % (3.4-9.0); NEUTROPHILS % (MANUAL) 79 % (40-74); POIKILOCYTOSIS SLIGHT
[2017-10-04 07:39] LABS: PLATELET ESTIMATE SLIGHTLY INCREASED; PLATELET MORPHOLOGY COMMENT FEW LARGE; RBC MORPHOLOGY COMMENT ABNORMAL
[2017-10-04] MEDS: METOPROLOL SUCCINATE 25 MG TAB XL PO SCH ×2 (09:45→21:11)
[2017-10-04] MEDS: VALPROATE 250MG/5ML ORAL LIQ 5ml PEG SCH ×2 (09:45→21:11)
[2017-10-04] MEDS: MULTIVITAMINS 5 ML LIQUID PEG SCH (09:45)
[2017-10-04] MEDS: NYSTATIN/TRIAMCINOLONE 15 GM CR TOP SCH ×2 (09:45→16:59)
[2017-10-04] MEDS: FAMOTIDINE 20 MG TAB PO SCH ×2 (09:45→21:11)
[2017-10-04] MEDS: OYST-CAL-D 500MG TABLET PO SCH ×2 (09:45→16:59)
[2017-10-04] MEDS: METOCLOPRAMIDE HCL 10 MG TAB PO SCH ×2 (09:45→21:11)
[2017-10-04] MEDS: BALSAM PERU/CASTOR OIL 60 GM OINT...G. TP SCH ×2 (09:45→16:59)
[2017-10-04] MEDS: ASCORBIC ACID 500 MG TAB PO SCH ×2 (09:45→16:59)
[2017-10-04] MEDS: ASPIRIN 81 MG CHEW TAB PEG SCH (09:45)
[2017-10-04] MEDS: FERROUS SULFATE 300 MG/5 ML LIQD GT SCH (09:45)
[2017-10-04] MEDS: METRONIDAZOLE 500 MG TAB PO SCH ×3 (09:45→16:59)
[2017-10-04] MEDS: ZINC SULFATE 220 MG CAP PO SCH ×2 (09:45→16:59)
[2017-10-04] MEDS: MAGNESIUM OXIDE 400 MG TAB PO SCH ×3 (09:45→16:59)
--- NOTE | 2017-10-04 16:19 | Diagnostic Imaging Report ---
PROCEDURE:MODIFIED BA. SWALLOW COMPARISON:None. INDICATIONS:Not provided. DISCUSSION: Fluoroscopic examination was performed in conjunction with speech pathology during swallowing of a variety of thin and thick liquid consistencies. RADIATION DOSE: Total Time: 2 min 22 sec Cumulative area dose product: 197.4 cGycm2 Cumulative air kerma: 5.48 mGy FINDINGS: PREMATURE SPILLAGE: Over the base of the tongue: None LARYNGEAL PENETRATION: Present with thin and nectar consistencies, and from residue from the valleculae ASPIRATION: Present. Silent trace aspiration with thin consistency and residue from the valleculae RESIDUE: VALLECULA: Max PYRIFORM SINUS: Max PHARYNGEAL WALL: Mild BASE OF TONGUE: Mild CONCLUSION: Silent aspiration with thin consistency and vallecular residue. Please see report from speech pathology for complete details. Dictated by: Costa Tejada M.D. on 10/04/2017 at 16:18 Electronically approved by: Costa Tejada M.D. on 10/04/2017 at 16:18
[2017-10-05] VITALS (7 sets, daily range): BP systolic 98–139; BP diastolic 56–82
[2017-10-05] MEDS: ACETAMINOPHEN 325 MG/10 ML UDC PEG PRN ×2 (00:02→05:52)
[2017-10-05] MEDS: METRONIDAZOLE 500 MG TAB PO SCH ×4 (00:08→17:50)
[2017-10-05] MEDS: ALBUTEROL/IPRATROPIUM 3 ML NEB NEB SCH ×4 (02:40→19:35)
[2017-10-05 05:59] LABS: BASOPHILS # (AUTO) 0.1 (0.0-0.1); BASOPHILS % 0.4 % (0.0-1.0); EOSINOPHILS # (AUTO) 0.2 (0.0-0.4); EOSINOPHILS % 0.9 % (0.0-6.0); HEMATOCRIT 26.3 % (38.2-49.6); HEMOGLOBIN 8.3 g/dL (14.0-18.0); LYMPHOCYTES # (AUTO) 2.3 (1.0-3.2); LYMPHOCYTES % 13.5 % (18.0-39.1); MEAN CORPUSCULAR HEMOGLOBIN 26.5 pg (28-32); MEAN CORPUSCULAR HGB CONC 31.6 g/dL (31-35); MONOCYTES # (AUTO) 1.5 (0.2-0.8); MONOCYTES % 8.6 % (4.4-11.3); NEUTROPHILS % 76.1 % (38.7-80.0); PLATELET COUNT 360 x10e3/uL (140-360); RED BLOOD COUNT 3.13 x10e6/uL (4.3-5.7); RED CELL DISTRIBUTION WIDTH 18.4 % (11.7-14.4)
[2017-10-05 06:21] LABS: ANION GAP 12.7 mmol/L (8-16); BLOOD UREA NITROGEN 21 mg/dL (7-26); BUN/CREATININE RATIO 38 (6-25); CALCIUM 9.2 mg/dL (8.4-10.2); CARBON DIOXIDE 22 mmol/L (22-29); CHLORIDE 105 mmol/L (98-107); CREATININE, SERUM 0.55 mg/dL (0.72-1.25); EST GLOMERULAR FILTRATION RATE > 60 ML/MIN (60-); GLUCOSE 133 mg/dL (74-118); POTASSIUM 3.7 mmol/L (3.5-5.1); SODIUM 136 mmol/L (136-145)
[2017-10-05] MEDS: ASPIRIN 81 MG CHEW TAB PEG SCH (08:02)
[2017-10-05] MEDS: MULTIVITAMINS 5 ML LIQUID PEG SCH (08:02)
[2017-10-05] MEDS: ASCORBIC ACID 500 MG TAB PO SCH ×2 (08:02→17:50)
[2017-10-05] MEDS: FERROUS SULFATE 300 MG/5 ML LIQD GT SCH (08:02)
[2017-10-05] MEDS: METOPROLOL SUCCINATE 25 MG TAB XL PO SCH ×2 (08:02→23:04)
[2017-10-05] MEDS: MAGNESIUM OXIDE 400 MG TAB PO SCH ×3 (08:02→17:50)
[2017-10-05] MEDS: FAMOTIDINE 20 MG TAB PO SCH ×2 (08:02→23:03)
[2017-10-05] MEDS: OYST-CAL-D 500MG TABLET PO SCH ×2 (08:02→17:50)
[2017-10-05] MEDS: METOCLOPRAMIDE HCL 10 MG TAB PO SCH ×2 (08:02→23:03)
[2017-10-05] MEDS: VALPROATE 250MG/5ML ORAL LIQ 5ml PEG SCH ×2 (08:02→23:03)
[2017-10-05] MEDS: ZINC SULFATE 220 MG CAP PO SCH ×2 (08:02→17:50)
[2017-10-05] MEDS: BALSAM PERU/CASTOR OIL 60 GM OINT...G. TP SCH ×2 (08:03→17:50)
[2017-10-05] MEDS: NYSTATIN/TRIAMCINOLONE 15 GM CR TOP SCH ×2 (08:03→17:50)
[2017-10-06] VITALS (7 sets, daily range): BP systolic 102–122; BP diastolic 37–67
[2017-10-06] MEDS: METRONIDAZOLE 500 MG TAB PO SCH ×4 (00:18→19:00)
[2017-10-06] MEDS: ALBUTEROL/IPRATROPIUM 3 ML NEB NEB SCH ×4 (02:10→19:50)
[2017-10-06] MEDS: ACETAMINOPHEN 325 MG/10 ML UDC PEG PRN ×2 (03:39→12:30)
[2017-10-06 06:01] LABS: BASOPHILS # (AUTO) 0.1 (0.0-0.1); BASOPHILS % 0.4 % (0.0-1.0); EOSINOPHILS # (AUTO) 0.2 (0.0-0.4); EOSINOPHILS % 1.7 % (0.0-6.0); HEMATOCRIT 23.7 % (38.2-49.6); LYMPHOCYTES # (AUTO) 2.1 (1.0-3.2); LYMPHOCYTES % 15.5 % (18.0-39.1); MEAN CORPUSCULAR HEMOGLOBIN 26.6 pg (28-32); MEAN CORPUSCULAR HGB CONC 32.1 g/dL (31-35); MEAN CORPUSCULAR VOLUME 82.9 fL (81-99); MONOCYTES # (AUTO) 1.3 (0.2-0.8); MONOCYTES % 9.3 % (4.4-11.3); NEUTROPHILS % 72.5 % (38.7-80.0); PLATELET COUNT 359 x10e3/uL (140-360); RED BLOOD COUNT 2.86 x10e6/uL (4.3-5.7); RED CELL DISTRIBUTION WIDTH 18.4 % (11.7-14.4)
[2017-10-06 06:04] LABS: HEMOGLOBIN 7.6 g/dL (14.0-18.0)
[2017-10-06 06:29] LABS: ANION GAP 10.7 mmol/L (8-16); BLOOD UREA NITROGEN 17 mg/dL (7-26); BUN/CREATININE RATIO 31 (6-25); CALCIUM 8.9 mg/dL (8.4-10.2); CARBON DIOXIDE 25 mmol/L (22-29); CHLORIDE 104 mmol/L (98-107); CREATININE, SERUM 0.54 mg/dL (0.72-1.25); EST GLOMERULAR FILTRATION RATE > 60 ML/MIN (60-); GLUCOSE 115 mg/dL (74-118); MAGNESIUM 1.5 MG/DL (1.3-2.1); POTASSIUM 3.7 mmol/L (3.5-5.1); SODIUM 136 mmol/L (136-145)
[2017-10-06] MEDS ORDERED: SODIUM CHLORIDE 0.9% 250ML 250 ML IV ONE (06:45)
[2017-10-06] MEDS ORDERED: EPOETIN ALFA 10000 UNIT/ML VIAL SC ONE (09:00)
[2017-10-06] MEDS: NYSTATIN/TRIAMCINOLONE 15 GM CR TOP SCH ×2 (09:00→16:23)
[2017-10-06] MEDS: BALSAM PERU/CASTOR OIL 60 GM OINT...G. TP SCH ×2 (09:00→16:23)
[2017-10-06] MEDS: MULTIVITAMINS 5 ML LIQUID PEG SCH (09:34)
[2017-10-06] MEDS: OYST-CAL-D 500MG TABLET PO SCH ×2 (09:34→16:23)
[2017-10-06] MEDS: MAGNESIUM OXIDE 400 MG TAB PO SCH ×3 (09:34→16:23)
[2017-10-06] MEDS: VALPROATE 250MG/5ML ORAL LIQ 5ml PEG SCH ×2 (09:34→21:43)
[2017-10-06] MEDS: ASPIRIN 81 MG CHEW TAB PEG SCH (09:34)
[2017-10-06] MEDS: FERROUS SULFATE 300 MG/5 ML LIQD GT SCH (09:34)
[2017-10-06] MEDS: ZINC SULFATE 220 MG CAP PO SCH ×2 (09:34→16:23)
[2017-10-06] MEDS: METOPROLOL SUCCINATE 25 MG TAB XL PO SCH ×2 (09:34→21:43)
[2017-10-06] MEDS: METOCLOPRAMIDE HCL 10 MG TAB PO SCH ×2 (09:34→21:43)
[2017-10-06] MEDS: ASCORBIC ACID 500 MG TAB PO SCH ×2 (09:34→16:23)
[2017-10-06] MEDS: FAMOTIDINE 20 MG TAB PO SCH ×2 (09:34→21:43)
--- NOTE | 2017-10-06 10:13 | Progress Note ---
DATE: Patient is seen and examined today. Patient appeared same, appeared comfortable, not communicative. Patient has worsening anemia. Hemoglobin dropped down to 7.6. Patient's ferritin level was very elevated. Kidney function was normal. PHYSICAL EXAMINATION GENERAL: Alert, awake, and not communicative. HEENT: Normocephalic and atraumatic. Sclerae pink. Conjunctivae clear. NECK: Supple. CHEST: Decreased breath sounds in bases. CARDIOVASCULAR: Regular rate and rhythm. EXTREMITIES: No edema. LABS AND IMAGING: Reviewed. ASSESSMENT AND PLAN: Patient with a history of aspiration pneumonia, multi-drug resistance colonization, fungemia, proteus mirabilis, and methicillin-resistant Staphylococcus aureus, and Acinetobacter infection, peripheral vascular disease, bilateral lower extremities ulcers, and persistent worsening anemia. Anemia workup is consistent with anemia of chronic disease. Patient will benefit with blood transfusion at current. I will restart the patient on the Procrit considering the anemia of chronic disease, not candidate for the iron treatment because of her elevated ferritin at current. We will continue remaining care. We will monitor patient very closely. Job#: [id number] TAWANNA
[2017-10-06] MEDS ORDERED: SODIUM CHLORIDE 0.9% 250ML 250 ML ONE ×2 (11:27→16:40)
--- NOTE | 2017-10-06 12:50 | Progress Note ---
DATE: October 06, 2017 SUBJECTIVE: This is a 77-year-old male with a past medical history of stroke, upper and lower extremity contractures, coronary artery disease, and congestive heart failure. He was seen at bedside this a.m. He was admitted approximately 2-1/2 weeks ago for sepsis and bilateral lower extremity ulcerations. He continues to be more alert on this visit than he was upon admission. He says a few words and does appear slightly confused. Denies any pain to his feet at the moment. He does not appear to be in any acute distress. OBJECTIVE VITAL SIGNS: Today, temperature is 98.1, heart rate 94, respiratory rate 20, blood pressure 102/60. Pulse ox is 98% on 2 L nasal cannula. Temperature max overnight was 101.2. PROBLEM-FOCUSED LOWER EXTREMITY PHYSICAL EXAMINATION VASCULAR: Dorsalis pedis and posterior tibial pulses are nonpalpable. Capillary refill time is delayed to the level of the digits. However, the foot is warm to the touch. SENSATION: Diminished to the level of the digits. However, the patient does express pain with positioning. MUSCULOSKELETAL: Severe contractures at the hips and knees as well as the upper and lower extremities. Has 0/5 muscle strength in bilateral lower extremity muscle groups. Pain when positioning the patient. DERMATOLOGICAL: Multiple ulcerations are noted to bilateral lower extremities. Again, the deepest ulcerations are noted to the right 5th metatarsal head and proximal phalanx as well as the right heel. These have significantly improved upon admission and are dark, dry, eschars. No erythema, warmth or drainage is noted at this time. Wound to the lateral malleolus is significantly improved and is 100% granular. Proximal left leg ulcerations are superficial scabs at this time with no locally acute signs of infection. Wounds bilaterally have improved. LABS: White blood cell count today is 13.8, which is down from a high of 23.7 on 10/04/2017. Hemoglobin 7.6, hematocrit 23.7, and platelet count 359. Sodium 136, potassium 3.7, chloride 104, BUN 17, creatinine 0.54, glucose 125. ASSESSMENT 1. Multiple bilateral lower extremities with osteomyelitis and sepsis. 2. Status post stroke with severe upper and lower extremity contractures. 3. Anemia of chronic disease. PLAN: Patient was seen and evaluated. Discussed condition and treatment options with the patient in detail. Patient continues to have increase and decrease of white blood cell count. The infection does not appear to be coming from the lower extremities as all wounds have healed since admission. Will continue local wound care to bilateral lower extremities with Xeroform, Maxorb, collagen, 4 x 4's, and Kerlix. Continue offloading with Prevalon boots. Antibiotics per infectious disease. The recommendation continues to be palliative care at this point. I do not see benefit of amputation to osteomyelitis as this would create further wounds as the patient has a history of chronic nonhealing wounds. The patient is stable to be discharged from podiatry standpoint to a nursing facility or long-term acute care for chronic ulceration. The podiatry service will continue to monitor as an inpatient. Job#: [id number]
--- NOTE | 2017-10-06 23:41 | Consultation ---
DATE OF CONSULTATION: October 05, 2017 ATTENDING DOCTOR: Dr. Sinclair REASON OF CONSULTATION: Anemia. 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 Patient is currently following podiatry. Initial diagnostic workup showed bibasilar atelectasis with diffuse pleural plaques bilaterally, questionable osteonecrosis. His CBC at admission showed white cell count was 19,000; hemoglobin was 9.6; platelet count was 221,000. During hospital admission, patient has worsening anemia. He had persistent normal kidney functions. His iron saturation was low. Ferritin level is not available. I am currently involved to discuss further management. PAST MEDICAL HISTORY: Includes coronary artery disease, congestive heart failure, major stroke resulted with quadriplegia, history of seizures, dementia, contracture, pressure sores on his feet. ALLERGIES: NKDA. MEDICATIONS: List reviewed. FAMILY HISTORY: Not relevant. SOCIAL HISTORY: [facility] resident. No current habits. Bedridden. REVIEW OF SYSTEMS: Could not obtain because of current medical condition. PHYSICAL EXAMINATION: GENERAL: Patient is alert, awake, not communicative, cachectic apparently appears very sick. HEENT: Normocephalic, atraumatic. Sclerae pale. Conjunctivae clear. NECK: Supple. No mass or thyromegaly. CARDIOVASCULAR: Regular rate and rhythm. RESPIRATORY: Decreased breath sounds on bases. ABDOMEN: Soft. PEG placed. SKIN: Feet covered with clean dressing. MUSCULOSKELETAL: Contracture present on all 4 extremities. VICE PRESIDENT BUSINESS DEVELOPMENT: Patient awake. LABS AND IMAGING: Reviewed. ASSESSMENT AND PLAN: Patient with history of multiple medical conditions. I am currently involved for: 1. Worsening anemia. Patient has anemia of chronic disease based on the previous workup. Current hemoglobin is trending downwards. Recommendation to do ferritin level before starting the patient on Procrit. Blood transfusion if hemoglobin drops further. Will monitor hemoglobin closely. Try to avoid frequent blood drawn. 2. Urinary tract infection with sepsis. Currently following ID, on medication. 3. Infected pressure sores, possible osteomyelitis. Podiatry on the case. 4. Congestive heart failure. Continue current care. 5. Old stroke with dementia, seizure, and dysphagia. Patient currently on medications. Continue supportive care. Thank you. Job#: [id number]
[2017-10-07] VITALS (7 sets, daily range): BP systolic 100–164; BP diastolic 56–106
[2017-10-07] MEDS: ALBUTEROL/IPRATROPIUM 3 ML NEB NEB SCH ×4 (01:02→19:15)
[2017-10-07 06:17] LABS: BASOPHILS # (AUTO) 0.1 (0.0-0.1); BASOPHILS % 0.4 % (0.0-1.0); EOSINOPHILS # (AUTO) 0.2 (0.0-0.4); EOSINOPHILS % 2.1 % (0.0-6.0); HEMATOCRIT 28.8 % (38.2-49.6); HEMOGLOBIN 9.7 g/dL (14.0-18.0); LYMPHOCYTES # (AUTO) 2.1 (1.0-3.2); LYMPHOCYTES % 18.9 % (18.0-39.1); MEAN CORPUSCULAR HEMOGLOBIN 27.5 pg (28-32); MEAN CORPUSCULAR HGB CONC 33.7 g/dL (31-35); MEAN CORPUSCULAR VOLUME 81.6 fL (81-99); MONOCYTES # (AUTO) 1.2 (0.2-0.8); MONOCYTES % 10.8 % (4.4-11.3); NEUTROPHILS # (AUTO) 7.5 (2.1-6.9); NEUTROPHILS % 67.2 % (38.7-80.0); PLATELET COUNT 355 x10e3/uL (140-360); RED BLOOD COUNT 3.53 x10e6/uL (4.3-5.7); RED CELL DISTRIBUTION WIDTH 17.6 % (11.7-14.4)
[2017-10-07] MEDS: METRONIDAZOLE 500 MG TAB PO SCH ×4 (06:20→18:00)
--- NOTE | 2017-10-07 06:44 | Diagnostic Imaging Report ---
CHEST SINGLE (PORTABLE), 10/07/2017 5:00 AM Technique: CHEST SINGLE (PORTABLE) Comparison: 10/01/2017 Clinical history: Follow-up aspiration Findings: See Impression Impression: Limited by portable technique and overlying arm. 1. Stable cardiac silhouette 2. Question patchy bibasilar opacity which could be due to aspiration or artifact of technique. Attention on follow-up. Signed by: Dr Ashlie Brown MD on 10/07/2017 6:40 AM
[2017-10-07 06:45] LABS: ANION GAP 11.1 mmol/L (8-16); BLOOD UREA NITROGEN 13 mg/dL (7-26); BUN/CREATININE RATIO 25 (6-25); CALCIUM 8.7 mg/dL (8.4-10.2); CARBON DIOXIDE 22 mmol/L (22-29); CHLORIDE 103 mmol/L (98-107); CREATININE, SERUM 0.51 mg/dL (0.72-1.25); EST GLOMERULAR FILTRATION RATE > 60 ML/MIN (60-); GLUCOSE 115 mg/dL (74-118); POTASSIUM 4.1 mmol/L (3.5-5.1); SODIUM 132 mmol/L (136-145)
[2017-10-07] MEDS: ASPIRIN 81 MG CHEW TAB PEG SCH (09:00)
[2017-10-07] MEDS: MAGNESIUM OXIDE 400 MG TAB PO SCH ×3 (09:00→17:00)
[2017-10-07] MEDS: ZINC SULFATE 220 MG CAP PO SCH ×2 (09:00→17:00)
[2017-10-07] MEDS: BALSAM PERU/CASTOR OIL 60 GM OINT...G. TP SCH ×2 (09:00→17:00)
[2017-10-07] MEDS: METOCLOPRAMIDE HCL 10 MG TAB PO SCH ×2 (09:00→16:30)
[2017-10-07] MEDS: VALPROATE 250MG/5ML ORAL LIQ 5ml PEG SCH ×2 (09:00→21:45)
[2017-10-07] MEDS: OYST-CAL-D 500MG TABLET PO SCH ×2 (09:00→17:00)
[2017-10-07] MEDS: FAMOTIDINE 20 MG TAB PO SCH ×2 (09:00→21:45)
[2017-10-07] MEDS: MULTIVITAMINS 5 ML LIQUID PEG SCH (09:00)
[2017-10-07] MEDS: NYSTATIN/TRIAMCINOLONE 15 GM CR TOP SCH ×2 (09:00→17:00)
[2017-10-07] MEDS: FERROUS SULFATE 300 MG/5 ML LIQD GT SCH (09:00)
[2017-10-07] MEDS: ASCORBIC ACID 500 MG TAB PO SCH ×2 (09:00→17:00)
[2017-10-07] MEDS: METOPROLOL SUCCINATE 25 MG TAB XL PO SCH ×2 (11:53→21:45)
--- NOTE | 2017-10-07 12:53 | Progress Note ---
DATE: SUBJECTIVE: Patient seen and examined today. Patient appears comfortable. Patient received blood transfusion yesterday. Current hemoglobin improved. No other events noted. PHYSICAL EXAMINATION GENERAL: Alert, awake, not communicative, dementia, quadriplegic. HEENT: Normocephalic, atraumatic. Sclerae pale. Conjunctivae clear. NECK: Supple. CHEST: Decreased breath sounds in the bases. ABDOMEN: Soft. EXTREMITIES: No edema. LABS AND IMAGING: Reviewed. ASSESSMENT AND PLAN: Patient with a history of quadriplegia, foot ulcers, anemia of chronic disease, and urinary tract infection. Patient is clinically doing better after the transfusion, current hemoglobin improved. Clinical condition is improving. At this point, we will continue the antibiotic treatment. Continue podiatry followup. Continue remaining care. Patient received one dose Procrit for anemia of chronic disease. We will follow patient closely. Job#: [id number] EDIE
[2017-10-07] MEDS ORDERED: METOPROLOL TARTRATE 25 MG TAB PEG SCH (21:00)
[2017-10-08 00:28] VITALS: BP 122/74
[2017-10-08] MEDS: METRONIDAZOLE 500 MG TAB PO SCH ×4 (00:45→16:59)
[2017-10-08] MEDS: ALBUTEROL/IPRATROPIUM 3 ML NEB NEB SCH ×4 (02:35→19:38)
[2017-10-08 04:45] VITALS: BP 122/66
[2017-10-08 06:11] LABS: BASOPHILS # (AUTO) 0.1 (0.0-0.1); BASOPHILS % 0.5 % (0.0-1.0); EOSINOPHILS # (AUTO) 0.2 (0.0-0.4); EOSINOPHILS % 1.3 % (0.0-6.0); HEMATOCRIT 29.5 % (38.2-49.6); HEMOGLOBIN 9.8 g/dL (14.0-18.0); LYMPHOCYTES # (AUTO) 2.3 (1.0-3.2); LYMPHOCYTES % 20.1 % (18.0-39.1); MEAN CORPUSCULAR HEMOGLOBIN 26.8 pg (28-32); MEAN CORPUSCULAR HGB CONC 33.2 g/dL (31-35); MEAN CORPUSCULAR VOLUME 80.6 fL (81-99); MONOCYTES # (AUTO) 1.3 (0.2-0.8); NEUTROPHILS # (AUTO) 7.6 (2.1-6.9); NEUTROPHILS % 66.2 % (38.7-80.0); PLATELET COUNT 347 x10e3/uL (140-360); RED BLOOD COUNT 3.66 x10e6/uL (4.3-5.7); RED CELL DISTRIBUTION WIDTH 17.4 % (11.7-14.4)
[2017-10-08 06:29] LABS: BLOOD UREA NITROGEN 10 mg/dL (7-26); BUN/CREATININE RATIO 20 (6-25); CALCIUM 8.7 mg/dL (8.4-10.2); CARBON DIOXIDE 22 mmol/L (22-29); CHLORIDE 102 mmol/L (98-107); CREATININE, SERUM 0.51 mg/dL (0.72-1.25); EST GLOMERULAR FILTRATION RATE > 60 ML/MIN (60-); GLUCOSE 99 mg/dL (74-118); SODIUM 130 mmol/L (136-145)
[2017-10-08 07:54] VITALS: BP 132/65
[2017-10-08] MEDS: OYST-CAL-D 500MG TABLET PO SCH ×2 (08:08→16:20)
[2017-10-08] MEDS: VALPROATE 250MG/5ML ORAL LIQ 5ml PEG SCH ×2 (08:08→21:10)
[2017-10-08] MEDS: MAGNESIUM OXIDE 400 MG TAB PO SCH ×3 (08:08→16:20)
[2017-10-08] MEDS: METOCLOPRAMIDE HCL 10 MG TAB PO SCH ×2 (08:08→16:20)
[2017-10-08] MEDS: METOPROLOL SUCCINATE 25 MG TAB XL PO SCH ×2 (08:08→21:10)
[2017-10-08] MEDS: ASPIRIN 81 MG CHEW TAB PEG SCH (08:08)
[2017-10-08] MEDS: FAMOTIDINE 20 MG TAB PO SCH ×2 (08:08→21:10)
[2017-10-08] MEDS: ZINC SULFATE 220 MG CAP PO SCH ×2 (08:08→16:20)
[2017-10-08] MEDS: FERROUS SULFATE 300 MG/5 ML LIQD GT SCH (08:08)
[2017-10-08] MEDS: BALSAM PERU/CASTOR OIL 60 GM OINT...G. TP SCH ×2 (08:08→16:20)
[2017-10-08] MEDS: NYSTATIN/TRIAMCINOLONE 15 GM CR TOP SCH ×2 (08:08→16:20)
[2017-10-08] MEDS: ASCORBIC ACID 500 MG TAB PO SCH ×2 (08:08→16:20)
[2017-10-08] MEDS: MULTIVITAMINS 5 ML LIQUID PEG SCH (08:08)
[2017-10-08] MEDS ORDERED: SODIUM CHLORIDE 1 GM TAB PO NR (11:30)
[2017-10-08] MEDS ORDERED: SODIUM CHLORIDE 1 GM TAB PEG NR ×2 (11:30→16:00)
[2017-10-08] MEDS: DOXYCYCLINE HYCLATE TABLET 100 MG TAB PO SCH (16:20)
[2017-10-08 20:01] VITALS: BP 115/68
[2017-10-09 00:59] VITALS: BP 108/60
[2017-10-09] MEDS: METRONIDAZOLE 500 MG TAB PO SCH ×4 (01:00→16:39)
[2017-10-09] MEDS: ALBUTEROL/IPRATROPIUM 3 ML NEB NEB SCH ×3 (01:22→13:40)
[2017-10-09 04:47] VITALS: BP 121/72
[2017-10-09 06:29] LABS: BASOPHILS # (AUTO) 0.1 (0.0-0.1); BASOPHILS % 0.6 % (0.0-1.0); EOSINOPHILS # (AUTO) 0.1 (0.0-0.4); EOSINOPHILS % 1.1 % (0.0-6.0); HEMATOCRIT 29.6 % (38.2-49.6); HEMOGLOBIN 9.7 g/dL (14.0-18.0); LYMPHOCYTES # (AUTO) 2.2 (1.0-3.2); LYMPHOCYTES % 18.5 % (18.0-39.1); MEAN CORPUSCULAR HEMOGLOBIN 26.7 pg (28-32); MEAN CORPUSCULAR HGB CONC 32.8 g/dL (31-35); MEAN CORPUSCULAR VOLUME 81.5 fL (81-99); MONOCYTES # (AUTO) 1.5 (0.2-0.8); MONOCYTES % 12.5 % (4.4-11.3); NEUTROPHILS # (AUTO) 7.6 (2.1-6.9); NEUTROPHILS % 65.6 % (38.7-80.0); PLATELET COUNT 340 x10e3/uL (140-360); RED BLOOD COUNT 3.63 x10e6/uL (4.3-5.7); RED CELL DISTRIBUTION WIDTH 17.8 % (11.7-14.4)
[2017-10-09 07:05] LABS: BLOOD UREA NITROGEN 11 mg/dL (7-26); BUN/CREATININE RATIO 21 (6-25); CALCIUM 8.5 mg/dL (8.4-10.2); CARBON DIOXIDE 22 mmol/L (22-29); CHLORIDE 99 mmol/L (98-107); CREATININE, SERUM 0.52 mg/dL (0.72-1.25); EST GLOMERULAR FILTRATION RATE > 60 ML/MIN (60-); GLUCOSE 108 mg/dL (74-118); SODIUM 126 mmol/L (136-145)
[2017-10-09] MEDS: METOCLOPRAMIDE HCL 10 MG TAB PO SCH ×2 (07:30→16:30)
[2017-10-09 08:00] VITALS: BP 109/72
[2017-10-09] MEDS: ZINC SULFATE 220 MG CAP PO SCH ×2 (08:00→16:40)
[2017-10-09] MEDS: ASCORBIC ACID 500 MG TAB PO SCH ×2 (08:00→16:40)
[2017-10-09] MEDS: MAGNESIUM OXIDE 400 MG TAB PO SCH ×3 (08:00→16:40)
[2017-10-09] MEDS: OYST-CAL-D 500MG TABLET PO SCH ×2 (08:00→16:40)
[2017-10-09] MEDS: SODIUM CHLORIDE 1 GM TAB PEG SCH ×2 (09:00→16:39)
[2017-10-09] MEDS: ASPIRIN 81 MG CHEW TAB PEG SCH (09:00)
[2017-10-09] MEDS: VALPROATE 250MG/5ML ORAL LIQ 5ml PEG SCH (09:00)
[2017-10-09] MEDS: METOPROLOL SUCCINATE 25 MG TAB XL PO SCH (09:00)
[2017-10-09] MEDS: FAMOTIDINE 20 MG TAB PO SCH (09:00)
[2017-10-09] MEDS: BALSAM PERU/CASTOR OIL 60 GM OINT...G. TP SCH ×2 (09:00→16:40)
[2017-10-09] MEDS: NYSTATIN/TRIAMCINOLONE 15 GM CR TOP SCH ×2 (09:00→16:40)
[2017-10-09] MEDS: FERROUS SULFATE 300 MG/5 ML LIQD GT SCH (09:00)
[2017-10-09] MEDS: MULTIVITAMINS 5 ML LIQUID PEG SCH (09:00)
[2017-10-09] MEDS: DOXYCYCLINE HYCLATE TABLET 100 MG TAB PO SCH ×2 (09:00→16:40)
--- NOTE | 2017-10-09 09:16 | Progress Note ---
DATE: October 09, 2017 Patient was seen and examined today. Patient appeared comfortable. No worsening events noted. No chest pain, headache or dizziness. Current hemoglobin is stable at 9.7. No worsening anemia noted. The patient received blood transfusion recently. He also received 1 dose of Epogen. PHYSICAL EXAMINATION GENERAL: Alert, awake and communicative. HEENT: Normocephalic and atraumatic. Sclerae pink. Conjunctivae clear. NECK: Supple. CHEST: Decreased breath sounds in the bases. CARDIOVASCULAR: Regular rate and rhythm. ABDOMEN: Soft. EXTREMITIES: Quadriplegia with contractures. LABS AND IMAGING: Reviewed. ASSESSMENT AND PLAN: Patient with history of worsening anemia. Anemia workup shows anemia of chronic disease. Started on Epogen. Also, received blood transfusion. Current hemoglobin is stable. RECOMMENDATIONS: Close observation. Try to avoid frequent blood draws. Urinary tract infection with sepsis. The patient currently on medications. Follow ID. Infected pressure sores. Possible osteomyelitis. Podiatry on the case. Congestive heart failure. On medication. Dementia with old stroke and quadriplegia. Continue on supportive care. Job#: [id number] HAIR
[2017-10-09] MEDS ORDERED: ASCORBIC ACID500 MG PO (11:06)
[2017-10-09] MEDS ORDERED: FAMOTIDINE20 MG PEG (11:06)
[2017-10-09] MEDS ORDERED: TOPROL XL25 MG PEG (11:06)
[2017-10-09] MEDS ORDERED: METOCLOPRAMIDE10 MG PEG (11:06)
[2017-10-09] MEDS ORDERED: Ferrous Sulfate GT (11:06)
[2017-10-09] MEDS ORDERED: MAGNESIUM OXID400 MG PEG (11:06)
[2017-10-09] MEDS ORDERED: Calcium Carbonate PEG (11:06)
[2017-10-09] MEDS ORDERED: Albuterol/Ipratropium Nebulize NEB (11:06)
[2017-10-09] MEDS ORDERED: SODIUM CHLORIDE1 GM PEG (11:06)
[2017-10-09] MEDS ORDERED: VENELEX OINTMEN60 GM TP (11:06)
[2017-10-09] MEDS ORDERED: FLAGYL500 MG PEG (11:06)
[2017-10-09] MEDS ORDERED: ZINC SULFATE220 M1 PEG (11:06)
[2017-10-09] MEDS ORDERED: DOXYCYCLINE HY100 MG PO (11:48)
[2017-10-09] MEDS ORDERED: CIPRO500 MG PEG (11:48)
[2017-10-09 12:00] VITALS: BP 109/72
[2017-10-09] MEDS: ACETAMINOPHEN 325 MG/10 ML UDC PEG PRN (12:02)
[2017-10-09 13:15] VITALS: BP 108/65
--- NOTE | 2017-10-09 14:06 | Discharge Summary ---
PERTINENT HISTORY AND PHYSICAL FINDINGS: Mr. Meadows is a 77-year-old gentleman who is bedbound with contractures of all 4 extremities, pressure sores on his feet, chronic indwelling Rodriguez catheter and PEG tube for feeding. He was originally sent from [facility] with fever greater than 102 with some decreased responsiveness related to the fever. He has past medical history significant for major stroke that resulted in functional quadriplegia, dysphagia, seizures, and dementia. He also had apparent history of coronary artery disease and congestive heart failure. NO KNOWN ALLERGIES. He is bedridden and requires total assistance for all activities of daily living. ADMITTING DIAGNOSES 1. Urinary tract infection with sepsis. 2. Infected pressure sores on both feet with evidence of osteomyelitis. 3. Iron deficiency anemia. 4. History of congestive heart failure of unknown type. 5. Old stroke with dementia, seizures, and dysphagia. CONSULTING PHYSICIANS: Include: 1. Dr. Rivera of infectious disease. 2. Dr. Davey with hematology. 3. Dr. Klein with podiatry. 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 Bilateral lower extremity ulcers deep to the bone. Per podiatry consultation note, multiple ulcerations were noted to bilateral lower extremities. To the right 5th digit, a stage-III ulceration with mild drainage with fibrogranular base. A deep stage-III ulceration to the patient's right heel, which does probe down to the level of the deep capsule. Wound is 100% fibrotic with mild drainage. Preulcerative lesion around the left 1st metatarsophalangeal joint. Ulceration along the left heel as well as left lateral malleolus. Multiple ulcerations noted to the patient's medial leg. Right foot x-ray had revealed osteolytic destruction of the right 5th proximal phalanx consistent with osteomyelitis. Left foot reveals possible cortical lucency in the left 1st proximal phalanx. Left 5th proximal phalanx with deformity to the left 5th metatarsal which may include chronic osteo versus previous trauma. On admission, chest x-ray showed bibasilar atelectasis and diffuse pleural plaques bilaterally. Flu screen was negative. UA had 20-50 white cells. ABG showed pH 7.56, pCO2 26, pO2 116. Free T4 was 0.79. Troponin was 0.038. Folic acid was greater than 20, and B12 was 477, both normal. Iron 23, percent saturation 16, transferrin 104, all low. Sodium 151, potassium 4.3, chloride 117, CO2 23, glucose 172. Creatinine 1.26, BUN 44, GFR greater than 60. Calcium 10.4. After hydration overnight with D5, his sodium was 146, potassium 3.1, CO2 22, chloride 117, BUN 36, creatinine 0.78, calcium 9, magnesium 1.6. CBC initially had a white count of 19.58 with 72% neutrophils, 19% lymphocytes, hemoglobin 9.6, hematocrit 32.7, platelet count 221,000. With hydration, the white count changed to 15.5 with 76% neutrophils, hemoglobin 6.7, hematocrit 22.8, and platelet count 171,000. Transaminases, bilirubin and alk phos were all normal. On the day of discharge, sodium 126, potassium 4.0, chloride 99, CO2 22, BUN 11, creatinine 0.52, glucose 108. WBC 11.6, hemoglobin 9.7, hematocrit 29.6, platelets 340. Echocardiogram completed on 09/17/2017 showed estimated ejection fraction of 60% to 65%. Bilateral lower extremity arterial ultrasound showed triphasic waveforms bilaterally with no evidence of significant arterial stenosis. The patient did receive blood on several occasions for transfusion. Per documentation from wound care, the sacrum has a stage-II decubitus. On October 06, 2017, it was found to be 8 x 8 x 0.3 cm, 90% granular, 10% slough and fibrin. Most of his wounds were unstageable. There was a stage-III right heel decubitus ulcer 5 x 5 x 0.4 cm, 85% granular and 15% necrotic. Left lateral ankle stage III, 2.5 x 1.5 x 0.5 cm, 80% granular, 20% slough and eschar. Left heel stage III 1 x 1 x 0.3 cm unstageable, 100% slough. Right heel stage III 5 x 5 x 0.4 cm, 85% granular and 15% necrotic. Several stage-II decubitus ulcers. Variety of antibiotics used. Today on the day of discharge, the patient is on Flagyl 500 mg IV every 6 hours and doxycycline hyclate 100 mg via PEG b.i.d. Will continue these. The hyponatremia of 126 will be treated with normal saline instead of free water flush and sodium tabs added. The patient had a modified barium swallow which he failed. It showed silent aspiration. He is to continue with PEG feeds. His H and H have been stable. Merrem was discontinued. DIAGNOSES LISTED AT TIME OF DISCHARGE 1. Bilateral lower extremity ulcerations with osteomyelitis. 2. Leukocytosis with paroxysmal fever. 3. Anemia of chronic disease. 4. Severe dysphagia with silent aspiration. 5. Severe hyponatremia. On the day of discharge, the patient denies any complaints of pain, headache, dizziness, chest pain, shortness of breath, cough, abdominal pain, or nausea. Telemetry shows normal sinus rhythm with a heart rate of 87. PHYSICAL EXAMINATION: Vital signs: Temperature 99.3, heart rate 89, blood pressure 121/72, respirations 18, oxygen saturation 100%. Intake and output are 600 mL in and 1800 mL out. General: The patient is lying supine in bed, awake, in no acute distress. Lungs are clear. Respirations relaxed on oxygen at 2 L via nasal cannula. HEENT: The extraocular movements are intact. The neck is supple. No lymphadenopathy or thyromegaly. Cardiovascular: Regular rate and rhythm without murmur. Abdomen: Bowel sounds positive. Soft and nontender. He has Jevity infusing at 50 mL an hour via PEG. Rodriguez catheter with kyara urine. Extremities are without pitting edema. No signs or symptoms or DVT. He has contractures in both upper and lower extremities. Neurologic: GCS 15, nonfocal. The patient will be discharged to [facility] as a long-term facility patient on Jevity tube feeds as a diet. Activities as tolerated. Medication reconciliation has been completed. Dictated by Jarad Sinha NP LUZ MACIEL MD Job#: [id number]
[2017-10-09 16:00] VITALS: BP 129/67
== END 2017-10-09 16:37 | DRG 871 ==
LOC: ER 11:50 → ERHOLD 19:18 → ICU 09-17 20:22 → MED/SURG2 09-20 19:54
PROVIDERS: ADMIT Internal Medicine; ATTEND Internal Medicine
PROC: 30243N1 Transfusion of Nonautologous Red Blood Cells into Central Vein, Percutaneous Approach (ICD-10-PCS; 2017-09-17)
PROC: 02HV33Z Insertion of Infusion Device into Superior Vena Cava, Percutaneous Approach (ICD-10-PCS; principal; 2017-09-21)
DX: A41.89 Other specified sepsis (principal); J69.0 Pneumonitis due to inhalation of food and vomit; L89.152 Pressure ulcer of sacral region, stage 2; L89.894 Pressure ulcer of other site, stage 4; R53.2 Functional quadriplegia; R64 Cachexia; L89.613 Pressure ulcer of right heel, stage 3; L89.523 Pressure ulcer of left ankle, stage 3; L89.623 Pressure ulcer of left heel, stage 3; N39.0 Urinary tract infection, site not specified; M86.9 Osteomyelitis, unspecified; E87.1 Hypo-osmolality and hyponatremia; I25.10 Atherosclerotic heart disease of native coronary artery without angina pectoris; D63.8 Anemia in other chronic diseases classified elsewhere; I69.391 Dysphagia following cerebral infarction; I69.398 Other sequelae of cerebral infarction; F01.50 Vascular dementia, unspecified severity, without behavioral disturbance, psychotic disturbance, mood disturbance, and anxiety; R50.81 Fever presenting with conditions classified elsewhere; Z16.24 Resistance to multiple antibiotics; E11.51 Type 2 diabetes mellitus with diabetic peripheral angiopathy without gangrene; B96.4 Proteus (mirabilis) (morganii) as the cause of diseases classified elsewhere; B95.62 Methicillin resistant Staphylococcus aureus infection as the cause of diseases classified elsewhere; B96.89 Other specified bacterial agents as the cause of diseases classified elsewhere; Z16.12 Extended spectrum beta lactamase (ESBL) resistance; E11.69 Type 2 diabetes mellitus with other specified complication; E11.621 Type 2 diabetes mellitus with foot ulcer; L89.892 Pressure ulcer of other site, stage 2; L89.890 Pressure ulcer of other site, unstageable; D50.9 Iron deficiency anemia, unspecified; I11.0 Hypertensive heart disease with heart failure; I50.9 Heart failure, unspecified; M24.552 Contracture, left hip; M24.551 Contracture, right hip; M24.562 Contracture, left knee; M24.561 Contracture, right knee; E87.8 Other disorders of electrolyte and fluid balance, not elsewhere classified; E83.42 Hypomagnesemia; Z93.1 Gastrostomy status; Z74.01 Bed confinement status
CPT/HCPCS: 36415; 36430; 36600; 71045; 71046; 74230; 80048; 80053; 80202; 81001; 82270; 82550; 82553; 82607; 82728; 82746; 82805; 82948; 83540; 83605; 83735; 83880; 84100; 84439; 84466; 84484; 85025; 86850; 86900; 86920; 87040; 87071; 87086; 87186; 87205; 87400; 93005; 93306; 93925; 94640; 96360; 96361; 96367; 99285; J0696; J1450; J2185; J2270; J2543; J3370; J7030; J7050; J7070; P9016; Q4081